=== PATIENT | male | born 1980 | race Caucasian/White ===

== ENCOUNTER 2021-08-04 13:36 | Inpatient (IN) | payer OTHER, SELFPAY ==
[~2021-08-04] VITALS: Ht 175.3 cm; Wt 98.4 kg
[2021-08-04] VITALS (7 sets, daily range): BP systolic 65–121; BP diastolic 13–59
--- NOTE | 2021-08-04 13:37 | NUR ---
YOEL ENCISO TAKEN TO ER BED 10
[2021-08-04] MEDS ORDERED: VANCOMYCIN 1,000 MG in DEXTROSE 5% 250 ML IV ONE (14:00)
[2021-08-04] MEDS ORDERED: CEFEPIME 2,000 MG in DEXTROSE 5% 100 ML IV ONE (14:00)
[2021-08-04] MEDS ORDERED: NACL 0.9% 1,000 ML IV ONE (14:00)
--- NOTE | 2021-08-04 14:00 | NUR ---
PATIENTS BLOOD PRESSURE 75/34, DR. DIXON MADE AWARE, GIVEN VERBAL ORDER TO BOLUS ONE BAG OF NS FLUIDS.
[2021-08-04] MEDS ORDERED: ACETAMINOPHEN 650 MG SUPP RC ONE ×2 (14:05→18:30)
--- NOTE | 2021-08-04 14:17 | NUR ---
FABIOLA SWAB COLLECTED AND HANDED TO MERVIN MCCORD
--- NOTE | 2021-08-04 14:17 | NUR ---
LAB BEDSIDE FOR BLOOD DRAW
[2021-08-04] MEDS ORDERED: CEFEPIME 2,000 MG VIAL IV ONE (14:29)
[2021-08-04 14:39] LABS: BASOPHILS # (AUTO) 0.1 K/uL (0.00-0.22); BASOPHILS % (AUTO) 0.5 % (0.0-2.0); EOSINOPHILS # (AUTO) 0.1 K/uL (0-0.4); EOSINOPHILS % (AUTO) 0.5 % (0.0-4.0); HEMOGLOBIN 7.3 g/dL (12.0-18.0); LYMPHOCYTES # (AUTO) 1.5 K/uL (2.0-11.5); LYMPHOCYTES % (AUTO) 9.3 % (20.5-51.1); MEAN CORPUSCULAR HEMOGLOBIN 29 pg (27-31); MEAN CORPUSCULAR HGB CONC 31 g/dL (33-37); MEAN CORPUSCULAR VOLUME 94.8 fL (80-94); MONOCYTES # (AUTO) 1.4 K/uL (0.8-1.0); MONOCYTES % (AUTO) 8.9 % (1.7-9.3); NEUTROPHILS # (AUTO) 12.6 K/uL (1.8-7.7); NEUTROPHILS % (AUTO) 80.8 % (42.2-75.2); PLATELET COUNT (AUTO) 389 K/uL (140-450); RED BLOOD CELL COUNT(AUTO) 2.53 MIL/uL (4.20-6.10); WHITE BLOOD COUNT (AUTO) 15.7 K/uL (4.8-10.8)
--- NOTE | 2021-08-04 14:40 | NUR ---
DR. DIXON BEDSIDE FOR ULTRASOUND GUIDED IV
--- NOTE | 2021-08-04 14:45 | NUR ---
EMT BEDSIDE FOR EKG
--- NOTE | 2021-08-04 14:48 | NUR ---
MANAGER LICENSING AT BEDSIDE
[2021-08-04] MEDS ORDERED: VANCOMYCIN 1,000 MG VIAL ONE (14:51)
--- NOTE | 2021-08-04 15:10 | NUR ---
PATIENT PRESENTS TO ED WITH C/O OF FEVER. PER EMS STAFF CALL 911 STATING PT HAD A TEMP OF 100.7. EMS STATES PT WAS TRANSFERED TO [facility] [place] YESTERDAY. PT TRACH TO VENT. UPON ARRIVAL RECTAL TEMP 101.9. GTUBE IN PLACE UPON ARRIVAL. UNSTAGEABLE ULCER AT THE SACERAL REGION. AAOX0, RT AT BEDSIDE UPON ADMISSION, PLACED PATENT ON VENT. PATIENT POSITIONED FOR COMFORT; HOB ELEVATED; BEDRAILS UP X2; BED DOWN. ER MD MADE AWARE OF PT STATUS. NKDA MED HX: CHRONIC ENCEPHALOPATHY, HTN, SEZ DISORDER, SI
[2021-08-04 15:14] LABS: ALBUMIN 1.9 g/dL (3.4-5.0); ANION GAP 13.8 (8-16); CARBON DIOXIDE 27.1 mmol/L (21-32); CREATININE 1.8 mg/dL (0.6-1.3); POTASSIUM 4.9 mmol/L (3.5-5.1); TOTAL BILIRUBIN 0.5 mg/dL (0.0-1.0)
[2021-08-04] MEDS ORDERED: NACL 0.9% 500 ML IV ONE ×2 (15:20→17:00)
--- NOTE | 2021-08-04 15:27 | NUR ---
URINE WALKED TO LAB
[2021-08-04 15:52] LABS: APPEARANCE,URINE CLEAR (CLEAR); BILIRUBIN,URINE NEGATIVE (NEGATIVE); BLOOD, URINE NEGATIVE (NEGATIVE); COLOR,URINE YELLOW (YELLOW); LEUKOCYTE ESTERASE ,URINE NEGATIVE (NEGATIVE); NITRITE, URINE NEGATIVE (NEGATIVE); UGLUCOSE NEGATIVE (NEGATIVE)
[2021-08-04 16:43] LABS: PROTHROMBIN TIME 10.8 secs (10.8-13.4)
--- NOTE | 2021-08-04 16:45 | NUR ---
BLOOD PRESSURE 90/47 MAP OF 58, DR. DIXON AWARE, VERBAL ORDER GIVEN TO START 500 FLUIDS
[2021-08-04] MEDS ORDERED: MAGNESIUM OXIDE 400 MG TAB PO PRN (17:05)
[2021-08-04] MEDS ORDERED: MORPHINE SULFATE 4 MG/ML SYR IVP PRN (17:05)
[2021-08-04] MEDS ORDERED: ONDANSETRON 4 MG/2 ML VIAL IVP PRN (17:05)
[2021-08-04] MEDS ORDERED: MAG SULF 2000 MG/WATER PREMIX 50 ML IV PRN (17:05)
[2021-08-04] MEDS ORDERED: POTASSIUM CHLORIDE 10 MEQ TABER PO PRN (17:05)
[2021-08-04] MEDS ORDERED: KCL 20 MEQ/WATER INJ PREMIX 200 ML IV PRN (17:05)
[2021-08-04] MEDS ORDERED: VANCOMYCIN PER PHARMACY MC PRN (17:05)
--- NOTE | 2021-08-04 17:45 | NUR ---
PATIENTS BLOOD PRESSURE 75/33, DR. DIXON AWARE.
--- NOTE | 2021-08-04 17:52 | NUR ---
SPOKE WITH PATIENTS MOTHER AND DECISION MAKER DRAKE, GIVEN VERBAL CONSENT TO ADMINISTER BLOOD TRANSFUSION.
--- NOTE | 2021-08-04 17:56 | NUR ---
Patient noted to have existing wounds upon arrival to ER. Photos taken of wound and placed in chart. Wound covered with dressing. Physician informed.
[2021-08-04] MEDS: PANTOPRAZOLE 80 MG in NACL 0.9% 100 ML IVP SCH (18:00)
[2021-08-04] MEDS: PIPERACILLIN/TAZOBACTAM 3.375 GM in DEXTROSE 5% 50 ML IV SCH (18:00)
[2021-08-04] MEDS ORDERED: VANCOMYCIN 500 MG in DEXTROSE 5% 100 ML IV SCH (18:00)
--- NOTE | 2021-08-04 18:00 | NUR ---
PATIENT REPOSITIONED IN BED, PROVIDED WITH EXTRA PILLOWS. PATIENT CLEANED AND PLACED IN A POSITION OF COMFORT. PATIENT ON BEDSIDE FIREWALL ENGINEER.
--- NOTE | 2021-08-04 18:20 | NUR ---
PATIENT RECTAL TEMP 100.9, GIVEN VERBAL ORDER FOR RC TYLENOL 650 MG
--- NOTE | 2021-08-04 18:25 | NUR ---
Consent signed per PATIENTS DECISION MAKER AND DR. DIXON agreeing to administration of blood. Blood has been type and crossmatched. Blood sent from blood bank. Information on unit of blood checked against patient wristband at bedside by two nurses. All information matches. Patient or responsible green party informed of potential complications associated with blood transfusion. Informed of possible transfusion reaction symptoms. Aware of need to notify nurse at once of itching, shortness of breath, flushing, feeling of impending doom, or other symptoms not previously present. Vital signs taken within 5 minutes prior to initiation of transfusion. RN will remain with patient for first 15 minutes of transfusion at which time vital signs will be re-assessed.
[2021-08-04] MEDS ORDERED: VANCOMYCIN 500 MG VIAL ONE (18:37)
[2021-08-04] MEDS: NACL 0.9% 1,000 ML IV SCH (19:02)
--- NOTE | 2021-08-04 19:06 | NUR ---
RECEIVED PT TRACH TO VENT WITH A PORTEX 8 ON A Digital LuxurySCAPE R860 VENTILATOR SETTINGS AC VT500, RR14, PEEP+5, FIO2 30%. NO SIGNS OF RESPIRATORY DISTRESS NOTED AT THIS TIME, PT'S CURRENT SATURATION IS 100%. ANTERIOR AUSCULTATION REVEALED BS CLEAR THROUGHOUT, SX SCANT PALE/YELLOW THICK SECRETIONS. ORAL CARE DONE, TRACH CARE DONE, SUCTION KAUR AND HME REPLACED, HOB ELEVATED, BAG VALVE MASK AT BEDSIDE, VENT PLUGGED INTO RED OUTLET. WILL CONTINUE TO MONITOR.
--- NOTE | 2021-08-04 19:31 | NUR ---
Pt report given to JACINDA THURSTON. Transfer of care at this time.
[2021-08-04] MEDS ORDERED: PIPERACILLIN/TAZOBACTAM 3.375 GM VIAL IV ONE (19:45)
--- NOTE | 2021-08-04 19:57 | NUR ---
REPORT GIVEN TO MARYAM MONACO AT THIS TIME FOR TRANSFER TO ICU1 AT THIS TIME. PENDING RT ESCORT
--- NOTE | 2021-08-04 20:00 | NUR ---
NOTE ABOVE CHARTED BY KARENA MONACO, NOT SATHISH
--- NOTE | 2021-08-04 20:19 | NUR ---
RT AT BEDSIDE FOR TRANSFER
--- NOTE | 2021-08-04 20:20 | NUR ---
RECEIVED REPORT FROM DELIMER RN BOB FOR TRANSFER OF CARE.
--- NOTE | 2021-08-04 20:36 | NUR ---
TRANSFERRED PT TO ICU BED 1 FROM ER BED 10 WITH NO COMPLICATIONS. VENT ON, ALARMS ARE ON AND AUDIBLE, VENT PLUGGED INTO RED OUTLET, BAG VALVE MASK AT BED SIDE, HOB ELEVATED, NO SIGNS OF RESPIRATORY DISTRESS AT THIS TIME. WILL CONTINUE TO MONITOR.
--- NOTE | 2021-08-04 21:55 | NUR ---
INFUSION OF 1 UNIT PRBC COMPLETED. PT TOLERATED WELL. VSS. WILL CONTINUE TO MONITOR.
[2021-08-05] VITALS (20 sets, daily range): BP systolic 94–141; BP diastolic 48–79
[2021-08-05] MEDS ORDERED: PIPERACILLIN/TAZOBACTAM 3.375 GM VIAL IV ONE ×2 (00:07→06:15)
--- NOTE | 2021-08-05 00:24 | NUR ---
PT OBSERVED. VSS. LAYING IN BED WITH EYES CLOSED. CHEST RISE AND FALL PRESENT. RT AT BEDSIDE. PT TURNED AND REPOSITIONED. WILL CONTINUE TO MONITOR.
--- NOTE | 2021-08-05 02:07 | NUR ---
PT OBSERVED. ORAL SECRETIONS PRESENT. ORAL SUCTIONING AND ORAL CARE PROVIDED. TOLERATED WELL. VSS. PT TURNED AND REPOSITIONED. WILL CONTINUE TO MONITOR.
[2021-08-05] MEDS ORDERED: PANTOPRAZOLE 40 MG INJ VIAL ONE (03:33)
[2021-08-05] MEDS: PANTOPRAZOLE 80 MG in NACL 0.9% 100 ML IVP SCH (04:00)
--- NOTE | 2021-08-05 04:10 | NUR ---
PT WITH COPIOUS AMOUNT OF LIGHT BROWN LIQUID STOOL. PT CLEANED AND REPOSITIONED. VREA CARE AND CATHETER CARE DONE. TOLERATED WELL. WILL CONTINUE TO MONITOR.
[2021-08-05] MEDS: NACL 0.9% 1,000 ML IV SCH ×2 (05:35→18:54)
[2021-08-05 05:54] LABS: ANION GAP 13.1 (8-16); CREATININE 1.4 mg/dL (0.6-1.3); MAGNESIUM 2.6 mg/dL (1.8-2.4); POTASSIUM 4.1 mmol/L (3.5-5.1); TOTAL BILIRUBIN 0.7 mg/dL (0.0-1.0)
[2021-08-05 06:06] LABS: BASOPHILS % (AUTO) 0.2 % (0.0-2.0); EOSINOPHILS # (AUTO) 0.1 K/uL (0-0.4); EOSINOPHILS % (AUTO) 1.1 % (0.0-4.0); HEMATOCRIT 25.8 % (36-52); HEMOGLOBIN 8.2 g/dL (12.0-18.0); LYMPHOCYTES # (AUTO) 0.6 K/uL (2.0-11.5); LYMPHOCYTES % (AUTO) 4.7 % (20.5-51.1); MEAN CORPUSCULAR HEMOGLOBIN 30 pg (27-31); MEAN CORPUSCULAR HGB CONC 32 g/dL (33-37); MEAN CORPUSCULAR VOLUME 92.8 fL (80-94); MONOCYTES # (AUTO) 0.5 K/uL (0.8-1.0); MONOCYTES % (AUTO) 3.9 % (1.7-9.3); NEUTROPHILS # (AUTO) 11.2 K/uL (1.8-7.7); NEUTROPHILS % (AUTO) 90.1 % (42.2-75.2); PLATELET COUNT (AUTO) 366 K/uL (140-450); RED BLOOD CELL COUNT(AUTO) 2.78 MIL/uL (4.20-6.10); RED CELL DISTRIBUTION WIDTH 18.4 % (11.6-13.7); WHITE BLOOD COUNT (AUTO) 12.4 K/uL (4.8-10.8)
[2021-08-05] MEDS: PIPERACILLIN/TAZOBACTAM 3.375 GM in DEXTROSE 5% 50 ML IV SCH ×3 (06:28)
--- NOTE | 2021-08-05 06:56 | NUR ---
PT OBSERVED LAYING IN BED WITH EYES CLOSED. CHEST RISE AND FALL PRESENT. NO S/S OF DISTRESS NOTED AT THIS TIME. ORAL CARE AND SUCTIONING PROVIDED. PT TURNED AND REPOSITIONED. WILL CONTINUE TO MONITOR.
--- NOTE | 2021-08-05 07:35 | NUR ---
REPORT GIVEN AT BEDSIDE TO DAYSHIFT RN FOR CONTINUITY OF CARE
--- NOTE | 2021-08-05 08:00 | NUR ---
Assumed care of Pt at this time. Pt is awake, non-verbal responsive to painful stimuli. Resp even and unlabored, trach to Vent patent and intact. Suctioned with thin clear white secretions obtained. Rhonchi heard upon auscultation. Abd soft and non-tender. + BS heard x 4. GT patent and intact. Skin dry and intact. Mult wounds noted and pictures in chart. Repositioned q2hr/PRN. Heels off loaded with protection in place. SR up x2 for safety, call light in reach.
--- NOTE | 2021-08-05 10:00 | NUR ---
PATIENT HAS BEEN SCREENED AND CATEGORIZED HIGH NUTRITION RISK. PATIENT WILL BE SEEN WITHIN 1-2 DAYS OF ADMISSION. / BASIL NASH RD
--- NOTE | 2021-08-05 10:08 | NUR ---
Dr Cobb present to round with RN. Request to consult Dr Saul with ID d/t PmHx of MDRO.
--- NOTE | 2021-08-05 11:34 | NUR ---
DC [age]ANN[age] YRS OLD MALE PATIENT WAS ADMITTED FROM [facility] WITH A DX OF SEPTIC SHOCK. 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 CXR SHOWED PNEUMONIA RAPID COVID TEST NEGATIVE. ON TRACH TO VENT FIO2 24%. ADMINISTERED IVF, IV ABX MEROPENEM AND PROTONIX DRIP. CONSULTED WITH GI AND PULMO. DC PLAN TO RETURN TO [facility] WHEN STABLE. CM TO FOLLOW.
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
--- NOTE | 2021-08-05 12:42 | NUR ---
08/05/21 RD INITIAL ASSESSMENT COMPLETED PLEASE REFER TO NUTRITION ASSESSMENT UNDER CARE ACTIVITY FOR ESTIMATED NUTRITIONAL NEEDS. 1. RECOMMEND NEPRO WITH A GOAL RATE OF 45 ML/HR -FWF: 150 ML Q6H OR PER MD -START AT 20 ML/HR AND INCREASE BY 20 ML Q6H TOLERATED -WILL PROVIDE 1944 KCAL AND 87 GM PROTEIN, MEETING 89% ESTIMATED KCAL AND 100% ESTIMATED PROTEIN NEEDS 2. MONITOR NUTRITION-RELATED LAB VALUES 3. RD TO FOLLOW-UP 2-3 DAYS, HIGH RISK BASIL NASH RD
[2021-08-05] MEDS: ALBUMIN HUMAN 25% 50 ML IV SCH ×2 (12:51→18:55)
[2021-08-05] MEDS: MEROPENEM 1,000 MG in NACL 0.9% 50 ML IV SCH ×2 (12:52→20:40)
--- NOTE | 2021-08-05 14:00 | NUR ---
Pt given complete pericare and repositioned q2hr during shift, remains VSS and afebrile. 1x episode of mod soft stool noted.
[2021-08-05] MEDS: VANCOMYCIN 1,000 MG in DEXTROSE 5% 250 ML IV SCH (16:52)
--- NOTE | 2021-08-05 17:00 | NUR ---
Pt transported x 2 RNS and 2 RTs. Pt on cont monitoring with 2x IVS patent. Report given to Debi MONACO. UMANG mattress pump transported with Pt to Room 108B(Tele). Pt condition remains stable and unchanged, VSS. Trach patent to vent and GT/F/C remains in place.
--- NOTE | 2021-08-05 17:15 | NUR ---
RECEIVED REPORT FROM ICU NURSE FOR CONTINUITY OF CARE. PT WAS TRANSFERRED VIA WOUND CARE BED. ON TRACH TO VENT WITH O2 SAT 100%. PT IS APHASIC. DOES NOT TRACK WITH EYES. G TUBE IS IN PLACE WITH FEEDING INFUSING. HAWTHORNE CATH IN PLACE DRAINING STRAW COLORED URINE. IV IS INTACT IN THE RIGHT HAND INFUSING FLUID AND LEFT AC IV ALSO INTACT. MULTIPLE WOUNDS ALL OVER BODY. PT IS BEDBOUND. WILL CONTINUE TO MONITOR.
--- NOTE | 2021-08-05 19:30 | NUR ---
ENDORSED PT TO APPLICATION INTEGRATION SPECIALIST NURSE FOR CONTINUITY OF CARE. PT IS STABLE. O2 SAT IS 100% ON TRACH TO VENT. PLAN OF CARE DISCUSSED.
--- NOTE | 2021-08-05 19:35 | NUR ---
RECEIVED REPORT FROM DAY NURSE FOR CONTINUITY OF CARE. PT IS APHASIC. DOES NOT TRACK WITH EYES, AROUSABLE TO LIGHT PAIN. ON TRACH TO VENT WITH O2 SAT 100%. G TUBE IS IN PLACE WITH FEEDING INFUSING. HAWTHORNE CATH IN PLACE DRAINING STRAW COLORED URINE. IV IS INTACT IN THE RIGHT HAND INFUSING FLUID AND LEFT AC IV ALSO INTACT. MULTIPLE WOUNDS ALL OVER BODY. PT IS BEDBOUND. WILL CONTINUE TO MONITOR
--- NOTE | 2021-08-05 20:00 | NUR ---
MESSAGED DR. BOSTON IF HE WANTS TO CONTINUE BLOOD TRANSFUSION, HGB 8.2, HCT 25.8. HE SAID TO HOLD FOR NOW.
--- NOTE | 2021-08-05 21:00 | NUR ---
SCHEDULED MEDICATION GIVEN. PT TOLERATED WELL. WILL CONTINUE TO MONITOR.
--- NOTE | 2021-08-05 22:28 | NUR ---
PT ASLEEP. BREATHING EQUAL AND UNLABORED.NO SIGNS AND SYMPTOMS OF DISTRESS NOTED. ALL PRECAUTIONS IN PLACE. WILL CONTINUE TO MONITOR.
[2021-08-06] VITALS: BP 122/55
--- NOTE | 2021-08-06 | NUR ---
VS STABLE.O2 SAT AT 100%.BREATHING EQUAL AND UNLABORED. NO S/SX OF DISTRESS NOTED. ALL PRECAUTIONS IN PLACE. CALL LIGHT WITHIN REACH.WILL CONTINUE TO MONITOR.
[2021-08-06] MEDS: HYDRAGUARD CREAM TP SCH ×2 (01:36→13:00)
--- NOTE | 2021-08-06 02:30 | NUR ---
PT ASLEEP.BREATHING EQUAL AND UNLABORED. NO S/SX OF DISTRESS NOTED. ALL PRECAUTIONS IN PLACE. CALL LIGHT WITHIN REACH.WILL CONTINUE TO MONITOR.
[2021-08-06 04:00] VITALS: BP 137/61
--- NOTE | 2021-08-06 04:20 | NUR ---
SCHEDULED MEDICATION GIVEN. PT TOLERATED WELL. WILL CONTINUE TO MONITOR.
[2021-08-06] MEDS: VANCOMYCIN 1,000 MG in DEXTROSE 5% 250 ML IV SCH ×2 (04:40→16:24)
--- NOTE | 2021-08-06 04:41 | NUR ---
PT WAS CLEANED AND REPOSITIONED FOR COMFORT. PT TOLERATED WELL. NO DISTRESS NOTED.
[2021-08-06] MEDS: MEROPENEM 1,000 MG in NACL 0.9% 50 ML IV SCH ×3 (05:00→20:12)
[2021-08-06] MEDS: NACL 0.9% 1,000 ML IV SCH (06:35)
[2021-08-06 06:39] LABS: BASOPHILS % (AUTO) 0.1 % (0.0-2.0); EOSINOPHILS # (AUTO) 0.4 K/uL (0-0.4); EOSINOPHILS % (AUTO) 3.7 % (0.0-4.0); HEMATOCRIT 22.6 % (36-52); HEMOGLOBIN 7.4 g/dL (12.0-18.0); LYMPHOCYTES # (AUTO) 0.8 K/uL (2.0-11.5); LYMPHOCYTES % (AUTO) 7.8 % (20.5-51.1); MEAN CORPUSCULAR HEMOGLOBIN 30 pg (27-31); MEAN CORPUSCULAR HGB CONC 33 g/dL (33-37); MEAN CORPUSCULAR VOLUME 92.2 fL (80-94); MONOCYTES # (AUTO) 0.6 K/uL (0.8-1.0); MONOCYTES % (AUTO) 6.5 % (1.7-9.3); NEUTROPHILS # (AUTO) 8.1 K/uL (1.8-7.7); NEUTROPHILS % (AUTO) 81.9 % (42.2-75.2); PLATELET COUNT (AUTO) 317 K/uL (140-450); RED BLOOD CELL COUNT(AUTO) 2.45 MIL/uL (4.20-6.10); RED CELL DISTRIBUTION WIDTH 18.5 % (11.6-13.7); WHITE BLOOD COUNT (AUTO) 9.9 K/uL (4.8-10.8)
--- NOTE | 2021-08-06 07:02 | NUR ---
PT IS STABLE. NO ACUTE EVENTS THROUGHOUT THE NIGHT. NO S/SX OF DISTRESS OF THE MOMENT.ALL NEEDS ATTENDED. ALL PRECAUTIONS IN PLACE. WILL ENDORSE TO AM SHIFT NURSE.
--- NOTE | 2021-08-06 07:10 | NUR ---
RECEIVED REPORT FROM SEMICONDUCTOR WAFERS MARKER NURSE FOR CONTINUITY OF CARE. PT ASLEEP IN BED. ON TRACH TO VENT WITH SETTINGS FIO2 24, PEEP 5, VT 475 RATE 14, BREATHING SYMMETRICAL. GT INTACT AND PATENT. HOB KEPT ELEVATED. WITH LAC 18G ON SALINE LOCK AND RIGHT WRIST 20G RUNNING NS AT 80CC/HR. ALL SAFETY MEASURES IN PLACE.
[2021-08-06 08:00] VITALS: BP 133/66
[2021-08-06] MEDS: PANTOPRAZOLE 40 MG INJ VIAL IVP SCH (08:17)
--- NOTE | 2021-08-06 10:09 | NUR ---
PT'S LATEST HEMOGLOBIN IS 7.4 WITH BLOOD READY, NO OBVIOUS SIGN OF ACTIVE BLEEDING NOTED AT THIS TIME. ALSO PT HAS HAWTHORNE CATHETER WITH NO INDICATION FOR IT, LEFT MESSAGE TO DR GONZALES IS WANTS TO PROCEED WITH BLOOD TRANSFUSION AND IF OKAY TO CHANGE TO HAWTHORNE CATHETER, AWAITING RESPONSE.
--- NOTE | 2021-08-06 10:16 | NUR ---
DR GONZALES STATED TO HOLD BLOOD TRANSFUSION AT THIS TIME AND DC HAWTHORNE CATHETER.
--- NOTE | 2021-08-06 10:29 | NUR ---
F/C DISCONTINUED ORDERED. FLACC O DURING REMOVAL.
[2021-08-06 11:03] LABS: ALBUMIN 2.1 g/dL (3.4-5.0); ANION GAP 17.2 (8-16); MAGNESIUM 2.3 mg/dL (1.8-2.4); POTASSIUM 3.2 mmol/L (3.5-5.1); TOTAL BILIRUBIN 0.4 mg/dL (0.0-1.0)
[2021-08-06] MEDS ORDERED: POTASSIUM CHLORIDE 20% 40 MEQ/15 ML UDC GT PRN (11:20)
[2021-08-06 12:00] VITALS: BP 134/67
[2021-08-06] MEDS: SKINTEGRITY HYDROGEL TP SCH (13:00)
--- NOTE | 2021-08-06 14:10 | NUR ---
PT IN BED, APHASIC, NON VERBAL. ON TRACH TO VENT, BREATHING SYMMETRICAL. FLACC O. WILL CONTINUE TO MONITOR
[2021-08-06 16:00] VITALS: BP 149/62
--- NOTE | 2021-08-06 17:42 | NUR ---
PT ASLEEP IN BED. BREATHING SYMMETRICAL ON TRACH TO VENT. FLACC O. FREQUENT ROUNDS DONE. GT INTACT AND PATENT, TOLERATING GTF WELL. ALL SAFETY MEASURES IN PLACE.
--- NOTE | 2021-08-06 19:15 | NUR ---
ENDORSED PT TO FRUIT HARVESTER MACHINE OPERATOR NURSE. PT IN STABLE CONDITION
--- NOTE | 2021-08-06 19:20 | NUR ---
RECEIVED REPORT FROM DAY NURSE FOR CONTINUITY OF CARE. PT IS APHASIC. DOES NOT TRACK WITH EYES, AROUSABLE TO LIGHT PAIN. ON TRACH TO VENT WITH O2 SAT 100%. G TUBE IS IN PLACE WITH FEEDING INFUSING. . IV IS INTACT IN THE RIGHT HAND INFUSING FLUID AND LEFT AC IV ALSO INTACT. MULTIPLE WOUNDS ALL OVER BODY. PT IS BEDBOUND. WILL CONTINUE TO MONITOR
[2021-08-06 20:00] VITALS: BP 142/66
--- NOTE | 2021-08-06 21:00 | NUR ---
SCHEDULED MEDICATION GIVEN. PT TOLERATED WELL. WILL CONTINUE TO MONITOR.
[2021-08-07] VITALS (7 sets, daily range): BP systolic 118–134; BP diastolic 50–64
--- NOTE | 2021-08-07 | NUR ---
PT ASLEEP.BREATHING EQUAL AND UNLABORED. NO S/SX OF DISTRESS NOTED. ALL PRECAUTIONS IN PLACE. CALL LIGHT WITHIN REACH.WILL CONTINUE TO MONITOR.
[2021-08-07] MEDS: HYDRAGUARD CREAM TP SCH ×2 (01:01→13:09)
--- NOTE | 2021-08-07 02:57 | NUR ---
TUBE FEEDING CHANGED. PT TOLERATED WELL. ALL PRECAUTIONS IN PLACE. WILL CONTINUE TO MONITOR.
[2021-08-07 03:05] LABS: BASOPHILS % (AUTO) 0.2 % (0.0-2.0); EOSINOPHILS # (AUTO) 0.3 K/uL (0-0.4); EOSINOPHILS % (AUTO) 2.6 % (0.0-4.0); LYMPHOCYTES # (AUTO) 1.5 K/uL (2.0-11.5); LYMPHOCYTES % (AUTO) 14.7 % (20.5-51.1); MEAN CORPUSCULAR HEMOGLOBIN 30 pg (27-31); MEAN CORPUSCULAR HGB CONC 32 g/dL (33-37); MEAN CORPUSCULAR VOLUME 92.7 fL (80-94); MONOCYTES # (AUTO) 0.6 K/uL (0.8-1.0); NEUTROPHILS % (AUTO) 76.5 % (42.2-75.2); PLATELET COUNT (AUTO) 325 K/uL (140-450); RED BLOOD CELL COUNT(AUTO) 2.37 MIL/uL (4.20-6.10); WHITE BLOOD COUNT (AUTO) 10.5 K/uL (4.8-10.8)
[2021-08-07 03:27] LABS: ANION GAP 13.4 (8-16); CARBON DIOXIDE 22.2 mmol/L (21-32); CREATININE 0.8 mg/dL (0.6-1.3); MAGNESIUM 1.9 mg/dL (1.8-2.4); POTASSIUM 3.6 mmol/L (3.5-5.1); TOTAL BILIRUBIN 0.2 mg/dL (0.0-1.0)
--- NOTE | 2021-08-07 03:33 | NUR ---
CRITICAL LAB VALUE. VANCO TROUGH 23.7. WILL HOLD 0400 SCHEDULED VANCO.
[2021-08-07] MEDS: VANCOMYCIN 1,000 MG in DEXTROSE 5% 250 ML IV SCH (04:00)
--- NOTE | 2021-08-07 04:01 | NUR ---
CALLED PHARMACY, SPOKE TO KRISTOFER AND REPORTED VANCO TROUGH 23.7. RELAYED NEW FREQUENCY WILL BE ORDERED.
[2021-08-07] MEDS: MEROPENEM 1,000 MG in NACL 0.9% 50 ML IV SCH ×3 (05:10→20:21)
--- NOTE | 2021-08-07 07:30 | NUR ---
RECEIVED REPORT FORM DISTANCE LEARNING PROGRAM COORDINATOR NURSE. PT STABLE. NO S/S OF DISTRESS. CALL LIGHT IN REACH ALL SAFETY MEASURES IN PLACE
--- NOTE | 2021-08-07 07:37 | NUR ---
PT ENDORSED TO AM SHIFT NURSE FOR CONTINUITY OF CARE. PT IS STABLE.
--- NOTE | 2021-08-07 08:02 | NUR ---
RECEIVED ON A BangoAPE R860 VENTILATOR PLUGGED INTO RED OUTLET TOLERATING WELL WITHOUT ADVERSE REACTIONS NOTED TO A PORTEX DCT #8 AIRWAY SECURED WITH A ZOEY TRACH TIE CUFF PRESSURE CHECKED NOTED AMBU BAG AT BEDSIDE RESTING WELL GOOD CHEST RISE AND AERATION THROUGHOUT BILATERAL LUNG HICKEY AIRWAY PATENT Addendum: 08/07/21 at 1432 by Marcell Hamilton RT DCT = SOCORRO
[2021-08-07] MEDS: PANTOPRAZOLE 40 MG INJ VIAL IVP SCH (08:47)
--- NOTE | 2021-08-07 11:30 | NUR ---
PT CLEANED AND CHANGED. WOUND CARE GIVEN. NO S/S OF DISTRESS. ALL SAFETY MEASURES IN PLACE
[2021-08-07] MEDS: SKINTEGRITY HYDROGEL TP SCH (13:09)
--- NOTE | 2021-08-07 14:00 | NUR ---
NO APPARENT DISTRESS NOTED EQUAL CHEST RISE DEEP TRACHEAL SUCTION FOR LARGE SEMI THICK PALE YELLOW SECRETIONS AIRWAY PATENT
--- NOTE | 2021-08-07 15:01 | NUR ---
08/07/21 RD FOLLOW UP COMPLETED PLEASE REFER TO NUTRITION ASSESSMENT UNDER CARE ACTIVITY FOR ESTIMATED NUTRITIONAL NEEDS. 1. CONTINUE NEPRO WITH A GOAL RATE OF 45 ML/HR -FWF: 150 ML Q6H OR PER MD -WILL PROVIDE 1944 KCAL AND 87 GM PROTEIN, MEETING 89% ESTIMATED KCAL AND 100% ESTIMATED PROTEIN NEEDS 2. MONITOR NUTRITION-RELATED LAB VALUES 3. RD TO FOLLOW-UP 3-5 DAYS, MODERATE RISK BASIL NASH RD
--- NOTE | 2021-08-07 16:00 | NUR ---
PT STABLE. BREATHING SYMMETRICAL. NO S/S OF DISTRESS. CALL LIGHT IN REACH. ALL SAFETY MEASURES IN PLACE.
--- NOTE | 2021-08-07 19:30 | NUR ---
RECEIVED REPORT FROM MORNING SHIFT NURSE. PATIENT RESTING ON BED, TRACHE TO VENT SETTING OF RR14 FI02 24% TV 445 PEEP 5. NO S/SX OF CARDIAC OR RESPIRATORY DISTRESS. PATIENT AWAKE WITH SPONTANEOUS EYE OPENING. IV SITES INTACT AND SALINE LOCKED. TUBE FEEDING ONGOING AT 45 ML/HR, WITH FWF OF 250 Q6H. WILL CONTINUE TO MONITOR PATIENT.
--- NOTE | 2021-08-07 19:43 | NUR ---
ENDORSED PT TO ENVIRONMENTAL HEALTH SAFETY MANAGER NURSE.
[2021-08-08] VITALS (7 sets, daily range): BP systolic 136–142; BP diastolic 50–70
[2021-08-08] MEDS: HYDRAGUARD CREAM TP SCH ×2 (01:11→13:28)
[2021-08-08] MEDS: MEROPENEM 1,000 MG in NACL 0.9% 50 ML IV SCH ×3 (04:58→22:27)
--- NOTE | 2021-08-08 05:00 | NUR ---
MORNING CARE RENDERED, COMPLETE BED CHANGE DONE.VERA CARE AND ORAL CARE DONE.
--- NOTE | 2021-08-08 07:17 | NUR ---
REPORT GIVEN TO MORNING SHIFT RN. PATIENT STABLE WITH SAME VENT SETTING.
--- NOTE | 2021-08-08 07:30 | NUR ---
RECEIVED REPORT FROM CURTAIN CLEANER NURSE. SPOKE TO RT, RT WILL COLLECT SPUTUM SAMPLE.
--- NOTE | 2021-08-08 07:40 | NUR ---
RECEIVED ON A MedHOKSCAPE R860 VENTILATOR PLUGGED INTO RED OUTLET TOLERATING WELL WITHOUT ADVERSE REACTIONS NOTED TO A PORTEX DFEN #8 AIRWAY SECURED WITH A ZOEY TRACH TIE AMBU BAG AT BEDSIDE RESTING COMFORTABLY NO APPARENT DISTRESS NOTED EQUAL CHEST RISE DEEP TRACHEAL SUCTION FOR SMALL THIN PALE YELLOW SECRETIONS AIRWAY PATENT
[2021-08-08 08:16] LABS: BASOPHILS % (AUTO) 0.3 % (0.0-2.0); EOSINOPHILS # (AUTO) 0.2 K/uL (0-0.4); EOSINOPHILS % (AUTO) 1.5 % (0.0-4.0); HEMATOCRIT 21.1 % (36-52); LYMPHOCYTES # (AUTO) 1.9 K/uL (2.0-11.5); LYMPHOCYTES % (AUTO) 15.4 % (20.5-51.1); MEAN CORPUSCULAR HEMOGLOBIN 30 pg (27-31); MEAN CORPUSCULAR HGB CONC 32 g/dL (33-37); MEAN CORPUSCULAR VOLUME 91.9 fL (80-94); MONOCYTES # (AUTO) 0.5 K/uL (0.8-1.0); MONOCYTES % (AUTO) 4.2 % (1.7-9.3); NEUTROPHILS # (AUTO) 9.6 K/uL (1.8-7.7); NEUTROPHILS % (AUTO) 78.6 % (42.2-75.2); PLATELET COUNT (AUTO) 351 K/uL (140-450); RED BLOOD CELL COUNT(AUTO) 2.29 MIL/uL (4.20-6.10); WHITE BLOOD COUNT (AUTO) 12.2 K/uL (4.8-10.8)
[2021-08-08 08:28] LABS: HEMOGLOBIN 6.8 g/dL (12.0-18.0)
--- NOTE | 2021-08-08 09:17 | NUR ---
NO SOB NOTED AT THIS TIME EQUAL CHEST RISE GOOD AERATION THROUGHOUT BILATERAL LUNG HICKEY AIRWAY PATENT
[2021-08-08] MEDS: PANTOPRAZOLE 40 MG INJ VIAL IVP SCH (09:26)
--- NOTE | 2021-08-08 11:30 | NUR ---
PT RESTING IN BED. NO S/S OF DISTRESS. BREATHING SYMMETRICAL, CALL LIGHT IN REACH. ALL SAFETY MEASURES IN PLACE. REMOVED LAC IV FOR INFECTION PREVENTION, CANULA INTACT. PT TOLERATED WELL.
--- NOTE | 2021-08-08 12:23 | NUR ---
NO EVIDENCE OF PULMONARY DISTRESS NOTED GOOD CHEST RISE DEEP TRACHEAL SUCTION FOR MODERATE THIN PALE WHITE SECRETIONS AIRWAY PATENT OBTAINED SPUTUM CULTURE SPECIMEN FORWARDED TO LAB
[2021-08-08 12:40] LABS: ANION GAP 17.1 (8-16); CARBON DIOXIDE 19.5 mmol/L (21-32); CREATININE 0.8 mg/dL (0.6-1.3); MAGNESIUM 1.8 mg/dL (1.8-2.4); POTASSIUM 3.6 mmol/L (3.5-5.1); TOTAL BILIRUBIN 0.2 mg/dL (0.0-1.0)
[2021-08-08] MEDS: SKINTEGRITY HYDROGEL TP SCH (13:28)
--- NOTE | 2021-08-08 15:30 | NUR ---
CLEANED AND CHANGED PT. WOUND CARE PROVIDED, ALL DRESSING CHANGED. PT TOLERATED WELL. NO S/S OF DISTRESS. Rt COLLECTED SPUTUM SPECIMEN TODAY AND SENT TO LAB. CALL LIGHT IN REACH. ALL SAFETY MEASURES IN PLACE
--- NOTE | 2021-08-08 15:38 | NUR ---
NO APPARENT SOB NOTED EQUAL CHEST RISE DEEP TRAHEAL SUCTION FOR MODERATE THIN PALE WHITE SECRETIONS AIRWAY PATENT
--- NOTE | 2021-08-08 19:30 | NUR ---
RECEIVED REPORT FROM RN DAYSHIFT NURSE AT BEDSIDE FOR CONTINUITY OF CARE, PT IS AOX1 HOB UP 35% EYES OPEN SPONTANEOUSLY, BUT DOESN'T TRACK. PT IS APHASIAC AND A TRACH TO VENT. VENT SETTINGS FOLLOWS: FI02 IS 24% RR 14 PEEP 5 VT 475. PT ALSO HAS A G TUBE IN PLACE RUNNING NEPHRO AT 45MLS/HR WITH H20 FLUSH OF 250Q 4HRS. PT IS INCONTINENT WITH NO HAWTHORNE CATHETER AND IS DRY AT THIS TIME. DRESSING TO ABDOMEN AND LOWER LEG IS INTACT WELL VERSATILE FOR TOES. PT HAS HEEL PROTECTORS ON. PT IV SITE IS A RIGHT WRIST 20G RUNNING N/S AT 5MLS/HR TO KVO. ALL ASPIRATION AND FALLS PRECAUTIONS IN PLACE.
--- NOTE | 2021-08-08 21:45 | NUR ---
PT 1999 V/S FOLLOWS: T 99.4 P 70 R 18 B/P 142/70 02 98% WITH ALL CURRENT TRACH TO VENT SETTINGS. PT GIVEN ICE PACKS COOLING MEASURES. ORDERED MERREM HUNG FOR EMPIRIC THERAPY. ALL ORDERED PRECAUTIONS IN PLACE.
--- NOTE | 2021-08-08 22:00 | NUR ---
PT REPOSITIONED IN BED AND SUCTIONED.
[2021-08-09] VITALS: BP 132/59
--- NOTE | 2021-08-09 00:30 | NUR ---
BLOOD TRANSFUSION STARTED. SD TRANSFUSION V/S FOLLOWS; T 99.4 P 71 R 16 B/P134/61 02 98% WITH ALL CURRENT TRACH TO VENT SETTINGS. ALL ORDERED PRECAUTIONS IN PLACE.
[2021-08-09] MEDS: HYDRAGUARD CREAM TP SCH ×2 (01:00→13:00)
--- NOTE | 2021-08-09 01:30 | NUR ---
BLOOD TRANSFUSION IN PROGRESS, NO ADVERSE EFFECTS NOTED. V/S HAVE BEEN STABLE, WILL CONTINUE TO MONITOR PT FOR TOLERANCE OF BLOOD TRANSFUSION. ALL ORDERED PRECAUTIONS IN PLACE.
--- NOTE | 2021-08-09 03:30 | NUR ---
BLOOD TRANSFUSION COMPLETED POST TRANSFUSION V/S FOLLOWS; T 98.8 P 65 R 18 B/P 134/56. NO ADVERSE REACTIONS NOTED. ALL ORDERED PRECAUTIONS IN PLACE.
[2021-08-09 04:00] VITALS: BP 144/63
--- NOTE | 2021-08-09 06:00 | NUR ---
PT WAS GIVEN ORDERED MERREM IV ABT . HE WAS TURNED, CLEANED AND REPOSITIONED IN BED. ORAL CARE PROVIDED. SACRAL DRESSING CHANGED AND BARRIER CREAM PROVIDED. ALL ORDERED PRECAUTIONS IN PLACE.
[2021-08-09] MEDS: MEROPENEM 1,000 MG in NACL 0.9% 50 ML IV SCH ×2 (06:42→12:28)
--- NOTE | 2021-08-09 07:30 | NUR ---
RECEIVED REPORT FROM ENVELOPE STAMPING MACHINE OPERATOR NURSE. NO S/S OF DISTRESS. CALL LIGHT IN REACH. ALL SAFETY MEASURES IN PLACE
[2021-08-09 07:41] LABS: ANION GAP 13.9 (8-16); CARBON DIOXIDE 23.9 mmol/L (21-32); CREATININE 0.7 mg/dL (0.6-1.3); POTASSIUM 3.8 mmol/L (3.5-5.1); TOTAL BILIRUBIN 0.4 mg/dL (0.0-1.0)
[2021-08-09 07:52] LABS: BASOPHILS # (AUTO) 0.1 K/uL (0.00-0.22); BASOPHILS % (AUTO) 0.4 % (0.0-2.0); EOSINOPHILS # (AUTO) 0.3 K/uL (0-0.4); HEMATOCRIT 24.9 % (36-52); LYMPHOCYTES # (AUTO) 2.3 K/uL (2.0-11.5); LYMPHOCYTES % (AUTO) 17.9 % (20.5-51.1); MEAN CORPUSCULAR HEMOGLOBIN 29 pg (27-31); MEAN CORPUSCULAR HGB CONC 32 g/dL (33-37); MEAN CORPUSCULAR VOLUME 90.1 fL (80-94); MONOCYTES # (AUTO) 0.7 K/uL (0.8-1.0); MONOCYTES % (AUTO) 5.7 % (1.7-9.3); NEUTROPHILS # (AUTO) 9.3 K/uL (1.8-7.7); PLATELET COUNT (AUTO) 398 K/uL (140-450); RED BLOOD CELL COUNT(AUTO) 2.77 MIL/uL (4.20-6.10); RED CELL DISTRIBUTION WIDTH 18.9 % (11.6-13.7); WHITE BLOOD COUNT (AUTO) 12.6 K/uL (4.8-10.8)
[2021-08-09 08:00] VITALS: BP 145/69
[2021-08-09] MEDS: PANTOPRAZOLE 40 MG INJ VIAL IVP SCH (08:49)
--- NOTE | 2021-08-09 11:47 | NUR ---
PT RESTING IN BED, NO S/S OF DISTRESS. CALL LIGHT IN REACH. ALL SAFETY MEASURES IN PLACE. IV PULLED OUT, CANULA INTACT. NEW IV INSERTED IN LEFT FOOT. ORDER FOR FOOT IV ENTERED.
[2021-08-09 12:00] VITALS: BP 133/81
[2021-08-09] MEDS: SKINTEGRITY HYDROGEL TP SCH (13:00)
[2021-08-09] MEDS ORDERED: MERO1PDS7 IV (15:20)
[2021-08-09 16:00] VITALS: BP 116/68
--- NOTE | 2021-08-09 16:13 | NUR ---
PT WILL TRANSFER BACK TO [facility] ROOM 1. NUMBER FOR REPORT [phone]. WAITING ON APPROVAL AND TRANSPORTATION TIME AND CONFIRMATIONS.
--- NOTE | 2021-08-09 18:32 | NUR ---
PT CLEANED AND CHANGED. WOUND CARE PERFORMED AND PICTURES TAKEN. REPORT GIVEN TO ELZBIETA AT [facility] AND [facility]. ALL SAFETY MEASURES IN PLACE. [facility] TRANSPORTING PT TO [facility] ROOM 1
--- NOTE | 2021-08-09 18:35 | NUR ---
PT CLEANED AND CHANGED. WOUND CARE GIVEN AND PICTURES TAKEN. REPORT GIVEN TO ELZBIETA MONACO AT [facility] AND [facility]. [facility] TRANSPORTING PT TO [facility] ROOM 1. ALL SAFETY MEASURES IN PLACE
== END 2021-08-09 18:35 | DRG 720 ==
LOC: MED 13:36 → MMU 16:21 → MIC 18:47 → MTU 08-05 17:00
PROVIDERS: ADMIT Hospitalist; ATTEND Hospitalist
PROC: 5A1955Z Respiratory Ventilation, Greater than 96 Consecutive Hours (ICD-10-PCS; 2021-08-04)
PROC: 30233N1 Transfusion of Nonautologous Red Blood Cells into Peripheral Vein, Percutaneous Approach (ICD-10-PCS; principal; 2021-08-06)
PROC: 30233N1 Transfusion of Nonautologous Red Blood Cells into Peripheral Vein, Percutaneous Approach (ICD-10-PCS; 2021-08-08)
DX: A41.50 Gram-negative sepsis, unspecified (principal); J96.21 Acute and chronic respiratory failure with hypoxia; R65.21 Severe sepsis with septic shock; J18.9 Pneumonia, unspecified organism; G93.1 Anoxic brain damage, not elsewhere classified; G82.20 Paraplegia, unspecified; L89.93 Pressure ulcer of unspecified site, stage 3; D63.8 Anemia in other chronic diseases classified elsewhere; N17.9 Acute kidney failure, unspecified; Z20.822 Contact with and (suspected) exposure to COVID-19; R13.10 Dysphagia, unspecified; R74.01 Elevation of levels of liver transaminase levels; Z93.0 Tracheostomy status; Z99.11 Dependence on respirator [ventilator] status; Z93.1 Gastrostomy status; Z91.51 Personal history of suicidal behavior; Z90.49 Acquired absence of other specified parts of digestive tract; Z86.74 Personal history of sudden cardiac arrest; N18.6 End stage renal disease; Z99.2 Dependence on renal dialysis
CPT/HCPCS: 36415; 71045; 80053; 80202; 81003; 82140; 83605; 83690; 83735; 84484; 85025; 85610; 86886; 86900; 86901; 86920; 87040; 87070; 87081; 87086; 87205; 89220; 93005; 94003; 99285; A6248; C9113; J0692; J2185; J2543; J3370; J7060; P9016; P9046; Q0092

== ENCOUNTER 2021-09-19 18:03 | Inpatient (IN) | payer OTHER ==
[~2021-09-19] VITALS: Ht 188 cm; Wt 112.5 kg
[~2021-09-19 18:03] MED LIST: MERO1PDS7 IV
--- NOTE | 2021-09-19 18:03 | NUR ---
[facility] ALS TO ER BED 10
[2021-09-19 18:05] VITALS: BP 104/61
[2021-09-19] MEDS ORDERED: NACL 0.9% 1,000 ML IV SCH (18:15)
--- NOTE | 2021-09-19 18:16 | NUR ---
41Y MALE BIBA FROM [facility] DUE TO LOW H&H. HGB 6.6 HCT 21.4. PT NON-VERBAL AND TRACH TO VENT. NO SIGNS OF DISTRESS NOTED. PT HAS G-TUBE AND HAWTHORNE IN PLACE FROM [facility]. MINOR WOUND NOTED ON PT ABDOMEN REGION. 22G IV ESTABLISHED IN R HAND FROM [facility]. PMH: RESP FAILURE, ANEMIA, GERD, HTN NKA
--- NOTE | 2021-09-19 18:20 | NUR ---
XRAY AT BEDSIDE
--- NOTE | 2021-09-19 18:21 | NUR ---
LAB BEDSIDE COLLECTING BLOODWORK
--- NOTE | 2021-09-19 18:31 | NUR ---
Miguel booth in [facility] - 09/19/21 at 1834 by MEDALAN OBTAINED VERBAL CONSENT FROM MOTHER VIA TELEPHONE TO PROVIDE PATIENT WITH BLOOD TRANSFUSION. SECOND RN OBTAINED VERBAL CONSENT FROM MOTHER WELL
--- NOTE | 2021-09-19 18:33 | NUR ---
URINE COLLECTED AND HANDED TO FINANCE ANALYST BEDSIDE
--- NOTE | 2021-09-19 18:34 | NUR ---
OBTAINED VERBAL CONSENT FROM MOTHER VIA TELEPHONE TO PROVIDE PATIENT WITH BLOOD TRANSFUSION. SECOND RN OBTAINED VERBAL CONSENT FROM MOTHER WELL
--- NOTE | 2021-09-19 18:35 | NUR ---
BLOOD TRANSFUSION CONSENT SIGNED AND PLACED INTO PATIENT CHART
[2021-09-19] MEDS ORDERED: cefTRIAXone 1,000 MG VIAL ONE (18:37)
--- NOTE | 2021-09-19 18:44 | NUR ---
PT PROVIDED WITH WARM BLANKET BEDSIDE
[2021-09-19 18:53] LABS: LYMPHOCYTES # (AUTO) 1.7 K/uL (2.0-11.5); RED BLOOD CELL COUNT(AUTO) 2.36 MIL/uL (4.20-6.10)
[2021-09-19 18:53] LABS: APPEARANCE,URINE CLEAR (CLEAR); BILIRUBIN,URINE NEGATIVE (NEGATIVE); BLOOD, URINE TRACE-I (NEGATIVE); COLOR,URINE YELLOW (YELLOW); LEUKOCYTE ESTERASE ,URINE 2+ (NEGATIVE); NITRITE, URINE NEGATIVE (NEGATIVE); UGLUCOSE NEGATIVE (NEGATIVE)
[2021-09-19 18:57] LABS: BASOPHILS % (AUTO) 0.4 % (0.0-2.0); EOSINOPHILS # (AUTO) 0.3 K/uL (0-0.4); EOSINOPHILS % (AUTO) 3.8 % (0.0-4.0); HEMATOCRIT 21.9 % (36-52); LYMPHOCYTES % (AUTO) 18.6 % (20.5-51.1); MEAN CORPUSCULAR HEMOGLOBIN 29 pg (27-31); MEAN CORPUSCULAR HGB CONC 31 g/dL (33-37); MEAN CORPUSCULAR VOLUME 92.9 fL (80-94); MONOCYTES # (AUTO) 0.8 K/uL (0.8-1.0); MONOCYTES % (AUTO) 8.7 % (1.7-9.3); NEUTROPHILS # (AUTO) 6.2 K/uL (1.8-7.7); NEUTROPHILS % (AUTO) 68.5 % (42.2-75.2); PLATELET COUNT (AUTO) 419 K/uL (140-450); RED CELL DISTRIBUTION WIDTH 19.5 % (11.6-13.7); WHITE BLOOD COUNT (AUTO) 9.1 K/uL (4.8-10.8)
[2021-09-19 18:58] LABS: RBC,URINE 0-5 /HPF (0-5)
[2021-09-19 19:04] LABS: HEMOGLOBIN 6.8 g/dL (12.0-18.0)
[2021-09-19 19:06] LABS: ANION GAP 8.4 (8-16); CARBON DIOXIDE 32.8 mmol/L (21-32); CREATININE 0.7 mg/dL (0.6-1.3); POTASSIUM 4.2 mmol/L (3.5-5.1); TOTAL BILIRUBIN 0.2 mg/dL (0.0-1.0)
--- NOTE | 2021-09-19 19:09 | NUR ---
WALKED MIKKI HICKS TO LAB
[2021-09-19] MEDS ORDERED: FERR325E14 GT (19:10)
[2021-09-19] MEDS ORDERED: ASCO500T95 GT (19:10)
[2021-09-19] MEDS ORDERED: DEXT1DRO4 OP (19:10)
[2021-09-19] MEDS ORDERED: LEVE250T7 GT (19:10)
[2021-09-19] MEDS ORDERED: HYDR-5080 GT (19:10)
[2021-09-19] MEDS ORDERED: LOSA100T1 GT (19:10)
[2021-09-19] MEDS ORDERED: FAMO-90 GT (19:10)
--- NOTE | 2021-09-19 19:10 | NUR ---
med rec completed
--- NOTE | 2021-09-19 19:18 | NUR ---
Pt report given to donnell matias. Transfer of care at this time.
[2021-09-19] MEDS ORDERED: ALBUTEROL 0.083% 2.5 MG/3 ML NEBU INH PRN (19:30)
[2021-09-19] MEDS ORDERED: MORPHINE SULFATE 2 MG/ML SYR IVP PRN (19:30)
[2021-09-19] MEDS ORDERED: ONDANSETRON 4 MG/2 ML VIAL IVP PRN (19:30)
[2021-09-19] MEDS ORDERED: ACETAMINOPHEN 650 MG/20.3 ML UDC GT PRN (19:30)
[2021-09-19] MEDS ORDERED: HYDROcodone/APAP 5/325 MG 1 TAB TAB GT PRN (19:30)
[2021-09-19] MEDS ORDERED: DEXT 5% / NACL 0.9% 500 ML IV ONE (19:45)
--- NOTE | 2021-09-19 19:55 | NUR ---
Consent signed per family memeber agreeing to administration of blood. Blood has been type and crossmatched. Blood sent from blood bank. Information on unit of blood checked against patient wristband at bedside by two nurses. All information matches. Patient or responsible democrat informed of potential complications associated with blood transfusion. Informed of possible transfusion reaction symptoms. Aware of need to notify nurse at once of itching, shortness of breath, flushing, feeling of impending doom, or other symptoms not previously present. Vital signs taken within 5 minutes prior to initiation of transfusion. RN will remain with patient for first 15 minutes of transfusion at which time vital signs will be re-assessed.
--- NOTE | 2021-09-19 21:08 | NUR ---
lab called saying the second unit of blood is ready.
--- NOTE | 2021-09-19 21:10 | NUR ---
TRANSFER PT FROM ER TO MED SURG/TELE. PT IS TRACH TO VENT WITH PORTEX 8, ON SETTING AC/VC 475, R14, PEEP 5 FIO2 40% VENT IS PLUGGED INTO THE RED OUTLET, AMBU BAG AT BEDSIDE. NO SIGN OF RESPIRATORY DISTRESS NOTED, AIRWAY PATENT ALARMS SET AUDIBLE. WILL CONTINUE TO MONITOR.
--- NOTE | 2021-09-19 21:14 | NUR ---
pt tx to the floor
--- NOTE | 2021-09-19 21:17 | NUR ---
PT TRANSPORTED VIA GURNEY. PT IS NONVERBAL. TRACH TO VENT. SATING 100%. VENT SETTINGS ARE FIO2 40%, VT 475, RT 14, PEEP 5 ON A/C VC. PT HAS 20 GAUGE ON LEFT HAND WITH BLOOD TRANSFUSING CURRENTLY. ALSO, 22 GAUGE ON RIGHT HAND SL. PT HAS WOUND ON CENTER OF ABD, RIGHT FOOT. ALSO, HAS G-TUBE PLACED PATENT. PT HAS CLEAR LUNG SOUNDS BILATERALLY. NO HEART MURMURS NOTED. S1/S2 HEARD. ABD SOFT AND NON-TENDER. VSS PT IS AFEBRILE. BED AT THE LOWEST POSITION. HEAD OF BED RAISED. SEIZURE PRECAUTION IN PLACE. ALL SAFETY MEASURES TAKEN. WILL CONTINUE TO MONITOR THE PT.
[2021-09-19 21:20] VITALS: BP 110/61
--- NOTE | 2021-09-19 21:20 | NUR ---
Patient will be admitted to care of DR CARTER. Admited to TELE. Will go to room 124B. Belongings list completed. Report to JACINDA THORNE.
--- NOTE | 2021-09-19 21:25 | NUR ---
BLOOD TRANSFUSION FINISHED. NO BLOOD TRANSFUSION REACTION NOTED. WILL GET 2ND UNIT SOON POSSIBLE. WILL CONTINUE TO MONITOR THE PT.
--- NOTE | 2021-09-19 22:20 | NUR ---
2ND UNIT OF BLOOD TRANSFUSION STARTED. WILL MONITOR FOR ANY BLOOD TRANSFUSION REACTION.
[2021-09-19 22:40] VITALS: BP 111/59
[2021-09-19] MEDS: FAMOTIDINE 20 MG TAB GT SCH (22:44)
[2021-09-19] MEDS: FERROUS SULFATE 300 MG/5 ML UDC GT SCH (22:45)
[2021-09-19] MEDS: levETIRAcetam 100 MG/ML ORASYR GT SCH (22:45)
[2021-09-20] VITALS: BP 107/59
[2021-09-20 01:10] VITALS: BP 107/59
--- NOTE | 2021-09-20 01:10 | NUR ---
2ND UNIT OF BLOOD TRANSFUSION FINISHED. NO BLOOD TRANSFUSION REACTION NOTED. WILL CONTINUE TO MONITOR THE PT.
--- NOTE | 2021-09-20 01:30 | NUR ---
PT WAS CLEANED AND CHANGED. PHOTO TAKEN OF SACRAL PRESSURE ULCER. DRESSING WAS CHANGED.
--- NOTE | 2021-09-20 03:15 | NUR ---
PT IS SLEEPING IN BED COMFORTABLY. PT IS NOT IN ANY DISTRESS. BREATHING EVEN AND UNLABORED. BED AT THE LOWEST POSITION. HEAD OF BED RAISED. CALL LIGHT WITHIN REACH. ALL SAFETY MEASURES TAKEN. WILL CONTINUE TO MONITOR THE PT.
[2021-09-20 04:00] VITALS: BP 97/52
--- NOTE | 2021-09-20 05:30 | NUR ---
PT WAS CLEANED AND CHANGED. SACRAL AND ABD DRESSING CHANGED. WILL CONTINUE TO MONITOR THE PT.
--- NOTE | 2021-09-20 07:20 | NUR ---
ENDORSED PT TO DAY SHIFT RN FOR CONTINUITY OF CARE. PT IS STABLE.
[2021-09-20 07:23] LABS: BASOPHILS % (AUTO) 0.3 % (0.0-2.0); EOSINOPHILS # (AUTO) 0.2 K/uL (0-0.4); EOSINOPHILS % (AUTO) 2.1 % (0.0-4.0); HEMOGLOBIN 8.1 g/dL (12.0-18.0); LYMPHOCYTES # (AUTO) 1.5 K/uL (2.0-11.5); LYMPHOCYTES % (AUTO) 18.1 % (20.5-51.1); MEAN CORPUSCULAR HEMOGLOBIN 29 pg (27-31); MEAN CORPUSCULAR HGB CONC 32 g/dL (33-37); MEAN CORPUSCULAR VOLUME 89.8 fL (80-94); MONOCYTES # (AUTO) 0.7 K/uL (0.8-1.0); MONOCYTES % (AUTO) 8.6 % (1.7-9.3); NEUTROPHILS # (AUTO) 6.1 K/uL (1.8-7.7); NEUTROPHILS % (AUTO) 70.9 % (42.2-75.2); PLATELET COUNT (AUTO) 368 K/uL (140-450); RED BLOOD CELL COUNT(AUTO) 2.79 MIL/uL (4.20-6.10); RED CELL DISTRIBUTION WIDTH 19.1 % (11.6-13.7); WHITE BLOOD COUNT (AUTO) 8.6 K/uL (4.8-10.8)
--- NOTE | 2021-09-20 07:25 | NUR ---
RECEIVED PT FROM NIGHT RN, RT SUCTIONING PT ON BEDSIDE, PT IS ON A TRACH TO VENT AT FIO2 AT 30%, RATE AT 14/MIN, VT IS 475 AND PEEP IS 5, PT IS APHASIC AND HAWTHORNE CATHETER IN PLACE, DRAINING, IV LINES NOTED ON THE RT HAND G. 22 AND ON THE LEFT HAND G. 20 BOTH ON SALINE LOCK, PT O2 SATURATION IS AT 98%, NO SIGN OF DISTRESS NOTED AND WILL CONTINUE TO MONITOR PT.
--- NOTE | 2021-09-20 07:26 | NUR ---
PT IS ON SEIZURE PRECAUTIONS FOR HX OF SEIZURE, SIDE RAILS ARE UP AND PADDED, SAFETY AND FALL PRECAUTION ENFORCED.
[2021-09-20 07:35] LABS: ANION GAP 11.4 (8-16); CARBON DIOXIDE 29.4 mmol/L (21-32); CREATININE 0.7 mg/dL (0.6-1.3); POTASSIUM 4.8 mmol/L (3.5-5.1); TOTAL BILIRUBIN 0.4 mg/dL (0.0-1.0)
[2021-09-20 08:00] VITALS: BP 121/63
[2021-09-20] MEDS: FAMOTIDINE 20 MG TAB GT SCH (08:23)
[2021-09-20] MEDS: levETIRAcetam 100 MG/ML ORASYR GT SCH (08:23)
[2021-09-20] MEDS: FERROUS SULFATE 300 MG/5 ML UDC GT SCH (08:23)
--- NOTE | 2021-09-20 08:23 | NUR ---
PT WAS GIVEN THE SCHEDULED AM MEDICATIONS, VIA G-TUBE, NO RESIDUAL NOTED, INTACT AND PATENT, HAWTHORNE CATHETER DRAINED 300ML OF URINE, LIGHT YELLOW.
--- NOTE | 2021-09-20 08:30 | NUR ---
DR. SHARMA CAME TO THE PT'S ROOM AND ASSESSED PT, SAID THAT HE WILL PROBABLY SEND PT BACK TO SNF, HGB TODAY IS 8.1.
[2021-09-20] MEDS ORDERED: ROC1PM IV (08:49)
[2021-09-20] MEDS ORDERED: LOSARTAN 50 MG TAB GT SCH (09:00)
[2021-09-20] MEDS ORDERED: ASCORBIC ACID 500 MG/5 ML ORASYR GT SCH (09:00)
[2021-09-20] MEDS ORDERED: FERR1TAB42 GT (09:11)
--- NOTE | 2021-09-20 11:00 | NUR ---
CALLED [facility] AT [phone] AND GAVE REPORT TO JACINDA DAVISON REGARDING CARE MANAGEMENT TO PT. PT WILL BE TRANSPORTED BY [facility] AND [facility] WILL BE AT 12PM AND IS GOING TO 2C UNDER THE SERVICE OF DR. VALENTIN.
[2021-09-20 11:03] VITALS: BP 108/68
--- NOTE | 2021-09-20 11:30 | NUR ---
WOUND ASSESSMENT AND PICTURES WERE TAKEN AND ATTACHED TO CHART.
[2021-09-20 12:00] VITALS: BP 106/54
--- NOTE | 2021-09-20 12:31 | NUR ---
DISCHARGED PT TO [facility]OM[facility] BY [facility] TRANSPORT PERSONNEL, ON A TRACH TO VENT, G-TUBE INTACT AND ABDOMINAL AND SACRAL DRESSINGS ARE IN PLACE, HAWTHORNE CATHETER IS IN PLACE WELL. IV LINES INTACT AND ON SALINE LOCKS. PT IS STABLE AT THIS TIME.
--- NOTE | 2021-09-21 08:34 | NUR ---
WOUND CARE CONSULT NOT DONE. PT. DISCHARGED.
== END 2021-09-20 12:32 | DRG 463 ==
LOC: MED 18:03 → MTU 19:40
PROVIDERS: ADMIT Student in an Organized Health Care Education/Training Program; ATTEND Student in an Organized Health Care Education/Training Program
PROC: 30233N1 Transfusion of Nonautologous Red Blood Cells into Peripheral Vein, Percutaneous Approach (ICD-10-PCS; principal; 2021-09-19)
PROC: 5A1935Z Respiratory Ventilation, Less than 24 Consecutive Hours (ICD-10-PCS; 2021-09-19)
DX: N39.0 Urinary tract infection, site not specified (principal); J96.11 Chronic respiratory failure with hypoxia; D63.8 Anemia in other chronic diseases classified elsewhere; Z93.0 Tracheostomy status; Z20.822 Contact with and (suspected) exposure to COVID-19; I10 Essential (primary) hypertension; R13.10 Dysphagia, unspecified; R53.81 Other malaise; Z79.899 Other long term (current) drug therapy; Z93.1 Gastrostomy status; Z74.01 Bed confinement status
CPT/HCPCS: 36415; 36430; 71045; 80053; 81001; 85025; 86886; 86900; 86901; 86920; 87040; 87081; 87086; 93005; 94002; 94003; 96365; 99285; J0696; J7030; P9016

== ENCOUNTER 2021-11-28 18:29 | Emergency (ER) | payer OTHER ==
[~2021-11-28] VITALS: Ht 180.3 cm; Wt 112.0 kg
[~2021-11-28 18:29] MED LIST changes: +ACET-1182 PO; +Amikacin Per Pharmacy MC; +FER300L GT; +Gauze TP; +KEP500L GT; -MERO1PDS7 IV; +METO5SOL24 IVP; +ONDA2SOL45 IVP; +PANT40EC PO; +PRON INH; +VANC25SO GT; +[UNRECOGNIZED DRUG - CODE] IV; +[UNRECOGNIZED DRUG - CODE] IV; +[UNRECOGNIZED DRUG - CODE] IV
--- NOTE | 2021-11-28 18:29 | NUR ---
PT BIBA FROM [facility] TAKEN TO ER BED 10.
[2021-11-28 18:40] VITALS: BP 104/70
--- NOTE | 2021-11-28 18:42 | NUR ---
DR. NEGRON AT PT BEDSIDE FOR FURTHER EVALUATION. SUCCESSFUL REMOVAL OF HAWTHORNE PER ERMD. NO ACTIVE BLEEDING, PT BLADDER EMPTIED 100CC OF BLOODY TINGED URINE.
--- NOTE | 2021-11-28 18:45 | NUR ---
# 16 FR Perez catheter with 10 ml utilizing sterile technique. Immediate return of 350 ml urine noted. Bedside drainage bag placed below level of bladder. Urine sample collected and sent to lab. Pt tolerated procedure well.
--- NOTE | 2021-11-28 18:53 | NUR ---
41 Y/O M[place] [facility] [place]NE CATHETER REPLACEMENT. PER EMT NURSE STATED HAWTHORNE WAS NOT DRAINING, ATTEMPTED TO DEFLATE BALLOON. CUT HAWTHORNE TUBING WITH UNSUCCESSFUL ATTEMPT TO REMOVE CATHETER. PT IS TRACHEA TO VENT GCS 6 PER BASELINE, A&OX0. PMH: HYPOXIA, ANOXIC BRAIN DAMAGE, HTN, QUADRIPLEGIA (SEE CHART FOR EXTENSIVE HISTORY) NKA
[2021-11-28] MEDS ORDERED: CEPH-588 PO (19:04)
--- NOTE | 2021-11-28 19:04 | NUR ---
CALLED [facility], SPOKE WITH JACINDA NOBLE TO GIVE REPORT FOR PENDING TRANSFER.
--- NOTE | 2021-11-28 19:16 | NUR ---
GAVE REPORT TO JACINDA PEREZ. TRANSFER OF CARE AT THIS TIME,
--- NOTE | 2021-11-28 20:00 | NUR ---
[facility] TRANSPORT AT BEDSIDE
[2021-11-28 20:10] VITALS: BP 104/70
--- NOTE | 2021-11-28 20:10 | NUR ---
Patient discharged with v/s stable. Written and verbal after care instructions provided in pt packet. Ambulance Transport with to [facility]. Called to give report [place] [facility]'s [place]ss.
--- NOTE | 2021-11-28 20:11 | NUR ---
PT TAKEN BY [facility] TRANSP[facility]
== END 2021-11-28 20:10 ==
LOC: MED 18:29
DX: S37.30XA Unspecified injury of urethra, initial encounter (principal); T83.091A Other mechanical complication of indwelling urethral catheter, initial encounter; Y73.8 Miscellaneous gastroenterology and urology devices associated with adverse incidents, not elsewhere classified; Y93.89 Activity, other specified; Y92.89 Other specified places as the place of occurrence of the external cause; Y99.8 Other external cause status
CPT/HCPCS: 51702; 99284

== ENCOUNTER 2022-01-23 15:03 | Inpatient (IN) | payer OTHER ==
[~2022-01-23] VITALS: Ht 180.3 cm; Wt 95.3 kg
[~2022-01-23 15:03] MED LIST changes: +CEPH-588 PO
[2022-01-23 15:09] VITALS: BP 105/67
[2022-01-23] MEDS ORDERED: ACETAMINOPHEN 650 MG SUPP RC ONE ×2 (15:30→18:05)
--- NOTE | 2022-01-23 15:32 | NUR ---
PT BIB SNF C/C FEVER. PT NON VERBAL AT BASELINE. PT STACH ON MONITOR. HX OF BRAIN ANOXIA S/P SI ATTEMPT. IV INSERTED TO LEFT HAND #[id number] BLOOD SENT TO LAB.
--- NOTE | 2022-01-23 15:34 | NUR ---
COOLING MEAUSRES INITIATED.
[2022-01-23 15:38] LABS: BASOPHILS # (AUTO) 0.1 K/uL (0.00-0.22); BASOPHILS % (AUTO) 0.4 % (0.0-2.0); EOSINOPHILS # (AUTO) 0.1 K/uL (0-0.4); EOSINOPHILS % (AUTO) 0.5 % (0.0-4.0); HEMATOCRIT 31.2 % (36-52); HEMOGLOBIN 9.7 g/dL (12.0-18.0); LYMPHOCYTES # (AUTO) 1.2 K/uL (2.0-11.5); LYMPHOCYTES % (AUTO) 5.4 % (20.5-51.1); MEAN CORPUSCULAR HEMOGLOBIN 29 pg (27-31); MEAN CORPUSCULAR HGB CONC 31 g/dL (33-37); MEAN CORPUSCULAR VOLUME 93.7 fL (80-94); MONOCYTES # (AUTO) 1.5 K/uL (0.8-1.0); MONOCYTES % (AUTO) 6.7 % (1.7-9.3); PLATELET COUNT (AUTO) 538 K/uL (140-450); RED BLOOD CELL COUNT(AUTO) 3.33 MIL/uL (4.20-6.10); RED CELL DISTRIBUTION WIDTH 16.3 % (11.6-13.7)
[2022-01-23 16:11] LABS: ALBUMIN 2.3 g/dL (3.4-5.0); ANION GAP 15.5 (8-16); CARBON DIOXIDE 30.7 mmol/L (21-32); CREATININE 1.4 mg/dL (0.6-1.3); POTASSIUM 4.2 mmol/L (3.5-5.1); TOTAL BILIRUBIN 0.5 mg/dL (0.0-1.0)
[2022-01-23] MEDS ORDERED: NACL 0.9% 1,000 ML IV ONE ×2 (16:20)
[2022-01-23] MEDS ORDERED: PIPERACILLIN/TAZOBACTAM 3.375 GM in DEXTROSE 5% 50 ML IV ONE (16:20)
[2022-01-23] MEDS ORDERED: VANCOMYCIN 1,000 MG in DEXTROSE 5% 250 ML IV ONE (16:20)
[2022-01-23] MEDS ORDERED: HYDROcodone/APAP 5/325 MG 1 TAB TAB PO PRN (18:00)
[2022-01-23] MEDS ORDERED: POTASSIUM CHLORIDE 10 MEQ TABER PO PRN (18:00)
[2022-01-23] MEDS ORDERED: MORPHINE SULFATE 4 MG/ML SYR IVP PRN (18:00)
[2022-01-23] MEDS ORDERED: ONDANSETRON 4 MG/2 ML VIAL IVP PRN (18:00)
[2022-01-23] MEDS ORDERED: ACETAMINOPHEN 325 MG TAB PO PRN (18:00)
[2022-01-23] MEDS ORDERED: MAGNESIUM OXIDE 400 MG TAB PO PRN (18:00)
[2022-01-23] MEDS ORDERED: PIPERACILLIN/TAZOBACTAM 3.375 GM VIAL IV ONE (18:04)
[2022-01-23] MEDS ORDERED: VANCOMYCIN 1,000 MG VIAL ONE (18:04)
[2022-01-23 18:33] LABS: APPEARANCE,URINE SL CLOUDY (CLEAR); BILIRUBIN,URINE NEGATIVE (NEGATIVE); BLOOD, URINE 1+ (NEGATIVE); COLOR,URINE YELLOW (YELLOW); LEUKOCYTE ESTERASE ,URINE 3+ (NEGATIVE); NITRITE, URINE NEGATIVE (NEGATIVE); PH,URINE 8.5 (5.0-9.0); UGLUCOSE NEGATIVE (NEGATIVE)
--- NOTE | 2022-01-23 18:58 | NUR ---
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 pts f/c leaking, new 16f catheter placed urine draining to gravity.
[2022-01-23 19:14] LABS: WBC,URINE 16-25 (MOD) /HPF (0-5)
[2022-01-23 19:15] LABS: CALCIUM OXALATE CRYSTALS,UR 0-10 /HPF (None Seen); TRICHOMONAS,URINE None Seen /HPF (None Seen); YEAST,URINE None Seen /HPF (None Seen)
[2022-01-23 19:16] LABS: TRIPLE PHOSPHATE CRYSTAL,UR 0-10 /HPF (None Seen)
[2022-01-23] MEDS: NACL 0.9% 1,000 ML IV SCH (19:31)
--- NOTE | 2022-01-23 21:10 | NUR ---
Patient will be admitted to care of Telemetry nurse Walker MONACO. Admited to telemetry. Will go to room 122B. Belongings list completed. Report to Shanelletry nurse Walker MONACO. Shanelletry nurse Walker MONACO verbalized understanding of report, no further questions from Shanelletry nurse Walker MONACO. Telemetry nurse Walker MONACO stated "I will give the 5,000 units of heparin that is due." Addendum: 01/23/22 at 2154 by [id number] Patient will be admitted to care of Telemetry nurse Walker MONACO. Admited to telemetry. Will go to room 122B. Belongings list completed. Report to Shanelletry nurse Walker MONACO. Shanelletry nurse Walker MONACO verbalized understanding of report, no further questions from Shanelletry nurse Walker MONACO. Telemetry nurse Walker MONACO stated "I will give the 5,000 units of heparin that is due." Pictures of all wounds taken, printed, and given to Shanelletry nurse Walker MONACO.
--- NOTE | 2022-01-23 21:33 | NUR ---
RECEIVED REPORT FROM ER NURSE YUSUF. PATIENT IS A&O X0, ON TRACH TO VENT. PATIENT HAS 4 WOUNDS NONE OF WHICH HAVE DRESSINGS ON THEM. ER NURSE OFFERED TO TAKE PICTURES OF WOUNDS WHEN THE PATIENT ARRIVED ON THE UNIT SINCE THERE WERE NONE TAKEN. UPON DOING SO ER NURSE INFORMED ME THAT THEY HADN'T REALIZED PATIENT HAD POOPED BEFORE BEING BROUGHT TO UNIT. I ASSESSED THE PATIENT AND SAW POOP WAS ALL OVER LEGS AND ON FEET OF PATIENT. POOP WAS LIQUID AND GREEN. CHARGE NURSE LAMBERTO AND ANDREW CAREY CAME IN TO HELP CLEAN THE PATIENT. ER NURSE AND EMT LEFT ROOM AND WENT BACK TO ER. PATIENT WAS THOROUGHLY CLEANED. DRESSING WAS PLACED ON SACRAL WOUND AFTER WOUND WAS THOROUGHLY CLEANED, WHICH HAD BEEN COVERED IN FECAL MATTER. PATIENT HAS 20G IN LEFT HAND, RUNNING NS AT 80. PATIENT HAS HAWTHORNE CATHETER. WILL CONTINUE TO OBSERVE PATIENT.
[2022-01-24] VITALS: BP 101/58
--- NOTE | 2022-01-24 00:45 | NUR ---
OBTAINED VITALS OF PATIENT. VITALS WERE: TEMP 100.6, HR 121, BP 101/58, O2 99%, RR 14. CHECKED PATIENT'S CHART TYLENOL IS ON FILE. WILL PROVIDE INTERVENTIONS AND OBSERVE PATIENT.
[2022-01-24] MEDS: PIPERACILLIN/TAZOBACTAM 3.375 GM in DEXTROSE 5% 50 ML IV SCH ×4 (00:50→18:24)
[2022-01-24] MEDS ORDERED: CRUSHER, PILL MC ONE (01:14)
--- NOTE | 2022-01-24 02:00 | NUR ---
PROVIDED COOLING MEASURES AND TYLENOL TO PATIENT FOR FEVER. REASSESSED PATIENT'S FEVER AT 0145. TEMPERATURE WAS 99.5. INTERVENTIONS WERE AFFECTIVE, WILL CONTINUE TO OBSERVE PATIENT.
[2022-01-24] MEDS: NACL 0.9% 1,000 ML IV SCH (03:20)
[2022-01-24 04:00] VITALS: BP 96/54
--- NOTE | 2022-01-24 04:00 | NUR ---
OBTAINED 0400 VITALS. VITALS WERE: TEMP 96.6, HR 94, BP 96/54, O2 98%, RR 14. BREATHING WAS NORMAL WITH SYMMETRICAL RISE AND FALL OF CHEST. WILL CONTINUE TO OBSERVE PATIENT.
--- NOTE | 2022-01-24 06:00 | NUR ---
PATIENT HAD POOPED AGAIN. PHYSICIAN AUTHORIZED ORDER TO DO C-DIFF AND INSERT RECTAL TUBE. PATIENT WAS CLEANED WITH THE ASSISTANCE OF CHARGE NURSE LAMBERTO AND ANDREW CAREY. RECTAL TUBE WAS INSERTED SUCCESSFULLY, NEW DRESSING WAS PLACE ON SACRAL WOUND AFTER WOUND HAD BEEN THOROUGHLY CLEANED. WILL CONTINUE TO OBSERVE PATIENT.
[2022-01-24 06:31] LABS: ALBUMIN 1.8 g/dL (3.4-5.0); ANION GAP 14.2 (8-16); CARBON DIOXIDE 26.4 mmol/L (21-32); CREATININE 1.5 mg/dL (0.6-1.3); POTASSIUM 3.6 mmol/L (3.5-5.1); TOTAL BILIRUBIN 0.5 mg/dL (0.0-1.0)
[2022-01-24 06:43] LABS: BASOPHILS % (AUTO) 0.1 % (0.0-2.0); EOSINOPHILS % (AUTO) 0.1 % (0.0-4.0); HEMATOCRIT 27.9 % (36-52); HEMOGLOBIN 8.5 g/dL (12.0-18.0); LYMPHOCYTES # (AUTO) 1.9 K/uL (2.0-11.5); LYMPHOCYTES % (AUTO) 9.3 % (20.5-51.1); MEAN CORPUSCULAR HEMOGLOBIN 29 pg (27-31); MEAN CORPUSCULAR HGB CONC 31 g/dL (33-37); MEAN CORPUSCULAR VOLUME 94.9 fL (80-94); MONOCYTES # (AUTO) 0.9 K/uL (0.8-1.0); MONOCYTES % (AUTO) 4.4 % (1.7-9.3); NEUTROPHILS # (AUTO) 17.1 K/uL (1.8-7.7); NEUTROPHILS % (AUTO) 86.1 % (42.2-75.2); PLATELET COUNT (AUTO) 425 K/uL (140-450); RED BLOOD CELL COUNT(AUTO) 2.94 MIL/uL (4.20-6.10); RED CELL DISTRIBUTION WIDTH 16.8 % (11.6-13.7); WHITE BLOOD COUNT (AUTO) 19.9 K/uL (4.8-10.8)
--- NOTE | 2022-01-24 07:35 | NUR ---
RECEIVED REPORT FROM NIGHTSARFT NURSE YUSUF FOR CONTINUITY OF CARE. PT IN STABLE CONDITION. PT CURRENTLY SLEEPING, AROUSED TO NAME AND SHAKING, BUT DOES NOT TRACK WITH EYES. PT IS TRACH TO VENT, VENT SETTINGS FOLLOWS: MODE A/C VC; FIO2 28%; VT 500; RATE 14/MIN; PEEP 5; PMAX 40; SPO2 96%. PT IS INCONTINENT OF THE BOWEL AND BLADDER, WITH HAWTHORNE AND RECTAL TUBE IN PLACE. DRESSINGS ON SACRUM AND LEFT HEEL INTACT. ULCER ON POSTERIOR RIGHT LOWER EXTREMITY OPEN TO AIR WITH MILD SEROUS/PURULENT DRAINAGE NOTED. RASH-LIKE REDNESS NOTED ON LEFT KNEE. NO SIGNS OF DISTRESS NOTED AT THIS TIME.
[2022-01-24] MEDS ORDERED: DEXTROSE 5% 1,000 ML IV SCH (07:45)
--- NOTE | 2022-01-24 07:45 | NUR ---
ENDORSED TO DAY SHIFT NURSE ROSA FOR CONTINUITY OF CARE. PATIENT IS STABLE.
[2022-01-24] MEDS: ALBUTEROL SULFATE/IPRATROPIU 3 ML SOL IH SCH ×2 (07:52→13:49)
--- NOTE | 2022-01-24 07:52 | NUR ---
RECEIVED ON A JuxinliSCAPE R860 VENTILATOR PLUGGED INTO RED OUTLET TOLERATING WELL WITHOUT ADVERSE REACTIONS NOTED TO A PORTEX DCT #8 AIRWAY SECURED WITH A TRACH TUE CUFF PRESSURE CHECKED NOTED AMBU BAG AT BEDSIDE STABLE RESTING WELL GOOD CHEST RISE DEEP TRACHEAL SUCTION FOR LARGE THIN YELLOW SECRETIONS AIRWAY PATENT SPUTUM CULTURE OBTAINED FORWARDED TO LAB
[2022-01-24 08:00] VITALS: BP 104/59
--- NOTE | 2022-01-24 08:00 | NUR ---
RT AT THE BEDSIDE PERFORMING TRACH CARE AND BREATHING TREATMENTS, VENT SETTINGS UNCHANGED, PT IN STABLE CONDITION.
--- NOTE | 2022-01-24 09:34 | NUR ---
PATIENT HAS BEEN SCREENED AND CATEGORIZED HIGH NUTRITION RISK. PATIENT WILL BE SEEN WITHIN 1-2 DAYS OF ADMISSION. RECEIVED FNS REFERRAL. 01/24/22-01/25/[address] BABAK [address]
--- NOTE | 2022-01-24 09:57 | NUR ---
NEW ORDERS RECEIVED, TUBE FEEDING FOR PT TO BEGIN, GLUCERNA WITH Q8H 125CC H20 FLUSHES. GOAL RATE 50ML/HR.
--- NOTE | 2022-01-24 11:09 | NUR ---
STABLE EQUAL CHEST RISE DEEP TRACHEAL SUCTION FOR SMALL THIN PALE YELLOW SECRETIONS AIRWAY PATENT
[2022-01-24] MEDS: NACL 0.45% 1,000 ML IV SCH (11:55)
[2022-01-24 12:00] VITALS: BP 106/59
--- NOTE | 2022-01-24 13:00 | NUR ---
WOUND CARE EVALUATION NOTE: SKIN ASSESSMENT DONE WITH PRIMARY RN ON THIS 41 Y/O PT ADMITTED FROM [facility] TO [facility] WITH PRIMARY DX: PNA, HYPOXIA, SEVERE SEPSIS, UTI, AND MULTIPLE PRESSURE INJURIES AND ARTERIAL ULCER TO RIGHT LATERAL MALLEOLUS. HAS DIARRHEA AND INCONTINENCE. HAS HAWTHORNE CATHETER, RECTAL TUBE, AND GTUBE IN PLACE. CURRENTLY RULING OUT CDIFF. ALL ABOVE INFORMATION OBTAINED FROM ADMISSION H&P. PT IS EYES CPEN, NO EYE CONTACT, SKIN IS WARM AND DRY. BLE WITH HAIR GROWTH, NO EDEMA, BILATERAL DORSAL PEDAL PULSES PRESENT AND NORMAL. POC DISCUSSED WITH PRIMARY RN. INTEGUMENTARY: - TRACH AND GT OSTOMY SITES VERA-WOUND SKIN DRY AND INTACT - UPPER ABDOMINAL SCAR TISSUE FROM COMPLETELY HEALED OLD WOUND. SKIN DRY, FLAKY. PERIWOUND INTACT. - SACRALCOCCYX STAGE 4 PRESSURE ULCER 6 X 9 X 6 CM WITH 2 CM UNDERMINING FROM 7 TO 9 O'CLOCK, WOUND BED PINK, MOIST, GRANULATING, NO SLOUGH. PERIWOUND INTACT. - LEFT LOWER KNEE LACERATION 2 X 2 X 0 CM OPEN LACERATION, WOUND BED PINK, BLANCHABLE REDNESS, NO DRAINAGE, NO ODOR. PERIWOUND PINK HEALED SCAR TISSUE. - RIGHT LATERAL MALLEOLUS ARTERICAL ULCER 2 X 2 X 0 CM, WOUND BED BROWN WITH SLOUGH, MINIMAL SEROUS DRAINAGE, NO ODOR. PERIWOUND INTACT, PINK. RECOMMENDATIONS: - UPPER ABDOMINAL SCAR TISSUE FROM COMPLETELY HEALED OLD WOUND: CLEANSE WITH NS OR SOAPY WATER,PAT DRY, APPLY HYDRAGUARD BID OR PRN OF SOILED. - SACRALCOCCYX STAGE 4 PRESSURE ULCER: CLEANSE WITH NS, PAT DRY, APPLY HYDROGEL TO WOUND BED, APPLY ONE PIECE OF KERLIX LIGHTLY PACK WOUND AND UNDERMINING AREAS, THEN COVER WITH FOAM DRESSING DAILY AND PRN IF SOILED. - LEFT LOWER KNEE LACERATION: CLEANSE WITH NS, PAT DRY, APPLY ADAPTIC DRESSING, COVER WITH COMPOSITE DRESSING DAILY AND PRN IF SOILED. - RIGHT LATERAL MALLEOLUS ARTERIAL ULCER: CLEANSE WITH NS, PAT DRY, APPLY THERAHONEY, COVER WITH COMPOSITE DRESSING DAILY AND PRN IF SOILED. - TURN AND REPOSITION PATIENT Q 2H OR SOONER USE PILLOWS TO KEEP BONY PROMINENCES FROM DIRECT CONTACT WITH SURFACES USE REPOSITIONING WEDGES TO PROVIDE 30-DEGREE ANGLE FOR SIDE LYING POSITIONS OFFLOADING OR FOAM DRESSING TO ALL TUBING TO PREVENT MEDICAL DEVICES RELATED PRESSURE INJURY -RE-ASSESSMENT Q SHIFT EVALUATING AND MANAGING INCONTINENCE MONITOR SKIN CONDITION DURING POSITION CHANGE DO NOT MASSAGE REDNESS, BONY PROMINENCES, DO NOT USE DONUT-TYPE DEVICES FREQUENT VERA-CARE AND PROVIDE BARRIER CREAMS PRN IF SOILING MOISTURE CONTROL BY OFFER BED HUNG/URINAL /ABSORBENT PAD TO WICK AND HOLD MOISTURE. KEEP SKIN DRY AND PROTECT FROM FRICTION -MANAGE FRICTION/SHEAR/MOBILITY KEEP HOB AT THE LOWEST LEVEL OF ELEVATION NO MORE THAN 30 DEGREE UNLESS OTHERWISE CONTRAINDICATED USE LIFT SHEET OR TRANSFER DEVICE TO MOVE PATIENT AND PREVENT LATERAL SHEER. PROTECT HEELS, ELBOWS BONY PROMINENCES WITH SKIN BERRIES OR FOAM DRESSING IF EXPOSED TO FRICTION OFFLOAD BILATERAL HEELS BY PLACING PILLOWS UNDER CALVES AT ALL TIMES, UNLESS OTHERWISE CONTRAINDICATED -PRESSURE REDISTRIBUTION SURFACE THERAPY-TRIPP ISOFLEX UMANG MATTRESS -NUTRITION: PLEASE FOLLOW RD RECOMMENDATIONS AND OFFER NUTRITION SUPPLEMENTS IF ORDERED.
[2022-01-24 16:00] VITALS: BP 101/52
--- NOTE | 2022-01-24 17:42 | NUR ---
STAB;E GOOD CHEST RISE DEEP TRACHEAL SUCTION FOR SMALL THIN PALE YELLOW SECRETIONS AIRWAY PATENT
--- NOTE | 2022-01-24 18:50 | NUR ---
MEDICATED PT WITH PRN NORCO DUE TO FACIAL GRIMACING, LUCERO-BELTRÁN PAIN SCALE SHOWED 8/10 PAIN.
--- NOTE | 2022-01-24 19:07 | NUR ---
[facility] FOR CONTINUITY OF CARE. PT IN STABLE CONDITION.
[2022-01-24 20:00] VITALS: BP 111/68
--- NOTE | 2022-01-24 23:04 | NUR ---
PATIENT NON VERBAL HAS TRACH TO VENT RATE 24,TV 500,FI02 28% PEEP 5. SAT 98%. LUNGS DIMINISH HAS 20 GA LEFT HAND 1/2NS INFUSING AT 80 HOUR HAS G-TUBE INFUSING AT 20 HOUR NO RESIDUAL INCREASE 10CC NOW FEEDING 30CC HOUR FEED ING TUBE FLUSH WITH 125CC WATER EVERY EIGHT HOURS. PATIENT HAS A F/C AND RECTAL TUBE. BOTH DRAINING WELL. PATIENT HAS STAGE IV TO SACRUM. AND RIGHT CALF WITH STAGE THREE. NO SIGNS OF ACUTE DISTRESS.
[2022-01-25] VITALS: BP 108/65
[2022-01-25] MEDS: NACL 0.45% 1,000 ML IV SCH ×2 (00:25→12:55)
[2022-01-25] MEDS: PIPERACILLIN/TAZOBACTAM 3.375 GM in DEXTROSE 5% 50 ML IV SCH ×4 (00:36→18:00)
[2022-01-25] MEDS: THERAHONEY GEL 42.5 GM TP SCH ×2 (01:30→13:00)
[2022-01-25] MEDS: HYDRAGUARD CREAM TP SCH ×2 (01:30→13:00)
[2022-01-25 04:00] VITALS: BP 105/50
[2022-01-25 06:29] LABS: BASOPHILS # (AUTO) 0.1 K/uL (0.00-0.22); BASOPHILS % (AUTO) 0.6 % (0.0-2.0); EOSINOPHILS # (AUTO) 0.6 K/uL (0-0.4); HEMATOCRIT 22.8 % (36-52); HEMOGLOBIN 7.3 g/dL (12.0-18.0); LYMPHOCYTES # (AUTO) 1.7 K/uL (2.0-11.5); LYMPHOCYTES % (AUTO) 11.3 % (20.5-51.1); MEAN CORPUSCULAR HEMOGLOBIN 30 pg (27-31); MEAN CORPUSCULAR HGB CONC 32 g/dL (33-37); MEAN CORPUSCULAR VOLUME 95.1 fL (80-94); MONOCYTES # (AUTO) 0.9 K/uL (0.8-1.0); MONOCYTES % (AUTO) 5.7 % (1.7-9.3); NEUTROPHILS # (AUTO) 12.1 K/uL (1.8-7.7); NEUTROPHILS % (AUTO) 78.4 % (42.2-75.2); PLATELET COUNT (AUTO) 389 K/uL (140-450); RED CELL DISTRIBUTION WIDTH 16.4 % (11.6-13.7); WHITE BLOOD COUNT (AUTO) 15.4 K/uL (4.8-10.8)
[2022-01-25 06:44] LABS: ALBUMIN 1.8 g/dL (3.4-5.0); ANION GAP 12.2 (8-16); CREATININE 1.3 mg/dL (0.6-1.3); POTASSIUM 3.2 mmol/L (3.5-5.1); TOTAL BILIRUBIN 0.3 mg/dL (0.0-1.0)
--- NOTE | 2022-01-25 07:56 | NUR ---
LAB REPORTED TO [facility] THAT PT IS POSITIVE FOR MRSA TO [facility]ES. MESSAGE TEXTED TO DR NASH.
[2022-01-25 08:00] VITALS: BP 102/50
[2022-01-25] MEDS: CHLORHEXADINE GLUC 2% CLOTH TP SCH (08:50)
[2022-01-25] MEDS: MUPIROCIN CA NASAL 2% 1GM TUBE NS SCH (10:00)
[2022-01-25 12:00] VITALS: BP 91/54
--- NOTE | 2022-01-25 13:20 | NUR ---
01/25/2022 RD INITIAL ASSESSMENT COMPLETED. PLEASE REFER TO NUTRITION ASSESSMENT UNDER CARE ACTIVITY FOR ESTIMATED NUTRITIONAL NEEDS. 1.CONTINUE WITH JEVITY 1.2 @ 70ML/HR H2O FLUSH 250 ML Q4H PT TOLERATES. 2.RECOMMEND PROSOURCE BID FOR WOUND ON SACRAL AREA. 2.MONITOR FOR GASTRIC RESIDUAL/ABDOMINAL DISTENTION 3.RD TO FOLLOW-UP IN 2-3 DAYS PATIENT IS HIGH RISK. KARENA WRIGHT RD
[2022-01-25 16:00] VITALS: BP 126/54
[2022-01-25] MEDS: ALBUTEROL SULFATE/IPRATROPIU 3 ML SOL IH SCH (19:30)
--- NOTE | 2022-01-25 19:30 | NUR ---
RECEIVED BEDSIDE REPORT FROM DAY SHIFT RN FOR CONTINUITY OF CARE. PT IS AWAKE AND APHASIC. PT IS TRACH TO VENT. SETTINGS: FIO2 24%, VT 500, RT 14, PEEP 5. PT SATING 95%. PT HAS LEFT HAND 2O GAUGE WITH 1/2 NS 80 CC/HR. PT HAS FC DRAINING CLEAR YELLOW URINE. RECTAL TUBE IN PLACE. PT HAS SEVERAL WOUNDS ON RIGHT CALF, LEFT GUEVARA, LEFT ANGLE, SACRAL. PT IS ON FEEDING GLUCERNA 40 CC WITH WATER FLUSH 500 Q6H. BED AT THE LOWEST POSITION. HEAD OF BED RAISED. WILL CONTINUE TO MONITOR THE PT.
--- NOTE | 2022-01-25 19:47 | NUR ---
1930 inline hhntx given by rt
[2022-01-25 20:00] VITALS: BP 98/55
--- NOTE | 2022-01-25 20:36 | NUR ---
SCHEDULE MEDS GIVEN. NO ADVERSE REACTION NOTED. WILL CONTINUE TO MONITOR THE PT.
[2022-01-26] VITALS (7 sets, daily range): BP systolic 102–129; BP diastolic 59–76
[2022-01-26] MEDS: PIPERACILLIN/TAZOBACTAM 3.375 GM in DEXTROSE 5% 50 ML IV SCH ×4 (00:08→17:49)
--- NOTE | 2022-01-26 00:13 | NUR ---
SCHEDULE MEDS GIVEN. NO ADVERSE REACTION NOTED. WILL CONTINUE TO MONITOR THE PT.
--- NOTE | 2022-01-26 01:10 | NUR ---
HHNTX GIVEN INLINE
[2022-01-26] MEDS ORDERED: POTASSIUM CHLORIDE 20% 40 MEQ/15 ML UDC GT SCH (01:40)
[2022-01-26] MEDS: THERAHONEY GEL 42.5 GM TP SCH ×2 (01:42→12:07)
[2022-01-26] MEDS: HYDRAGUARD CREAM TP SCH ×2 (01:42→12:07)
[2022-01-26] MEDS: NACL 0.45% 1,000 ML IV SCH ×2 (02:16→14:16)
--- NOTE | 2022-01-26 05:06 | NUR ---
SCHEDULE MEDS GIVEN. NO ADVERSE REACTION NOTED. WILL CONTINUE TO MONITOR THE PT.
--- NOTE | 2022-01-26 05:25 | NUR ---
PT WAS CLEANED AND CHANGED. PT TOLERATED IT WILL. WILL CONTINUE TO MONITOR THE PT.
[2022-01-26 05:43] LABS: ALBUMIN 1.7 g/dL (3.4-5.0); CARBON DIOXIDE 26.8 mmol/L (21-32); CREATININE 1.2 mg/dL (0.6-1.3); POTASSIUM 3.8 mmol/L (3.5-5.1); TOTAL BILIRUBIN 0.2 mg/dL (0.0-1.0)
[2022-01-26 07:16] LABS: EOSINOPHILS # (AUTO) 0.5 K/uL (0-0.4); MEAN CORPUSCULAR HGB CONC 32 g/dL (33-37); MONOCYTES # (AUTO) 0.6 K/uL (0.8-1.0); NEUTROPHILS # (AUTO) 8.5 K/uL (1.8-7.7); WHITE BLOOD COUNT (AUTO) 11.9 K/uL (4.8-10.8)
[2022-01-26 07:30] LABS: BASOPHILS % (AUTO) 0.4 % (0.0-2.0); EOSINOPHILS % (AUTO) 4.4 % (0.0-4.0); LYMPHOCYTES # (AUTO) 2.3 K/uL (2.0-11.5); LYMPHOCYTES % (AUTO) 19.1 % (20.5-51.1); MEAN CORPUSCULAR HEMOGLOBIN 30 pg (27-31); MEAN CORPUSCULAR VOLUME 94.6 fL (80-94); MONOCYTES % (AUTO) 5.3 % (1.7-9.3); NEUTROPHILS % (AUTO) 70.8 % (42.2-75.2); PLATELET COUNT (AUTO) 392 K/uL (140-450); RED BLOOD CELL COUNT(AUTO) 2.33 MIL/uL (4.20-6.10); RED CELL DISTRIBUTION WIDTH 15.8 % (11.6-13.7)
--- NOTE | 2022-01-26 07:32 | NUR ---
RECEIVED CIVIL ENGINEER IN TRAINING NURSE FOR CONTINUITY OF CARE. PT IS AWAKE AND APHASIC. PT IS TRACH TO VENT. SETTINGS:A/C VC FIO2 24%, VT 500, RT 14, PEEP 5. PT SATURATING AT 97%.HAS LH IV 20 GAUGE INFUSING FLUIDS WELL. PT HAS FC DRAINING CLEAR YELLOW URINE. RECTAL TUBE IN PLACE. PT HAS SEVERAL WOUNDS ON RIGHT CALF, LEFT GUEVARA, LEFT ANKLE, SACRAL. PT IS ON FEEDING AND TOLERATING WELL. NO RESIDUAL NOTED. FLACC IS 0. PLAN OF CARE DISCUSSED. SAFETY PRECAUTIONS IN PLACE. BED AT THE LOWEST POSITION. WILL CONTINUE TO MONITOR.
[2022-01-26] MEDS: ALBUTEROL SULFATE/IPRATROPIU 3 ML SOL IH SCH ×2 (07:34→13:10)
--- NOTE | 2022-01-26 07:35 | NUR ---
ENDORSED PT TO DAY SHIFT RN FOR CONTINUITY OF CARE. PT IS STABLE.
--- NOTE | 2022-01-26 07:35 | NUR ---
RECEIVED ON A BigRepSCAPE R860 VENTILATOR PLUGGED INTO RED OUTLET TOLERATING WELL WITHOUT ADVERSE REACTIONS NOTED TO A PORTEX DFEN #8 AIRWAY SECURED WITH A ZOEY TRACH TIE CUFF PRESSURE CHECKED NOTED AMBU BAG AT BEDSIDE STABLE NO PULMONARY DISTRESS NOTED GOOD CHEST RISE DEEP TRACHEAL USCTION FOR SMALL THIN YELLOW SECRETIONS AIRWAY PATENT
[2022-01-26] MEDS: CHLORHEXADINE GLUC 2% CLOTH TP SCH (09:05)
[2022-01-26] MEDS: MUPIROCIN CA NASAL 2% 1GM TUBE NS SCH (09:05)
--- NOTE | 2022-01-26 09:10 | NUR ---
ALL SCHEDULED MEDS GIVEN. PT IS STABLE. NO DISTRESS NOTED. WILL CONTINUE TO MONITOR.
--- NOTE | 2022-01-26 10:05 | NUR ---
STABLE RESTING WELL EQUAL CHEST RISE GOOD AERATION THROUGHOUT BILATERAL LUNG HICKEY AIRWAY PATENT
--- NOTE | 2022-01-26 12:10 | NUR ---
ALL SCHEDULED MEDS GIVEN. PT IS STABLE. NO DISTRESS NOTED. WILL CONTINUE TO MONITOR.
--- NOTE | 2022-01-26 16:05 | NUR ---
CHECKED ON PATIENT. PT IS STABLE. NO DISTRESS NOTED. WILL CONTINUE TO MONITOR.
--- NOTE | 2022-01-26 19:40 | NUR ---
ENDORSED TO PENSION EXAMINER NURSE FOR CONTINUITY OF CARE. PT IS STABLE.
[2022-01-27] VITALS: BP 108/60
[2022-01-27] MEDS: PIPERACILLIN/TAZOBACTAM 3.375 GM in DEXTROSE 5% 50 ML IV SCH ×5 (00:38→23:15)
[2022-01-27] MEDS: THERAHONEY GEL 42.5 GM TP SCH ×2 (01:00→13:04)
[2022-01-27] MEDS: HYDRAGUARD CREAM TP SCH ×2 (01:00→13:04)
[2022-01-27 04:00] VITALS: BP 104/55
[2022-01-27 05:30] LABS: BASOPHILS % (AUTO) 0.3 % (0.0-2.0); EOSINOPHILS # (AUTO) 0.5 K/uL (0-0.4); EOSINOPHILS % (AUTO) 3.2 % (0.0-4.0); HEMATOCRIT 23.7 % (36-52); HEMOGLOBIN 7.4 g/dL (12.0-18.0); LYMPHOCYTES # (AUTO) 2.5 K/uL (2.0-11.5); LYMPHOCYTES % (AUTO) 17.4 % (20.5-51.1); MEAN CORPUSCULAR HEMOGLOBIN 30 pg (27-31); MEAN CORPUSCULAR HGB CONC 31 g/dL (33-37); MEAN CORPUSCULAR VOLUME 94.4 fL (80-94); MONOCYTES # (AUTO) 0.6 K/uL (0.8-1.0); MONOCYTES % (AUTO) 4.6 % (1.7-9.3); NEUTROPHILS # (AUTO) 10.6 K/uL (1.8-7.7); NEUTROPHILS % (AUTO) 74.5 % (42.2-75.2); PLATELET COUNT (AUTO) 443 K/uL (140-450); RED BLOOD CELL COUNT(AUTO) 2.51 MIL/uL (4.20-6.10); RED CELL DISTRIBUTION WIDTH 16.1 % (11.6-13.7); WHITE BLOOD COUNT (AUTO) 14.2 K/uL (4.8-10.8)
[2022-01-27 06:02] LABS: ALBUMIN 1.9 g/dL (3.4-5.0); ANION GAP 14.1 (8-16); CARBON DIOXIDE 26.2 mmol/L (21-32); POTASSIUM 4.3 mmol/L (3.5-5.1); TOTAL BILIRUBIN 0.4 mg/dL (0.0-1.0)
[2022-01-27] MEDS: ALBUTEROL SULFATE/IPRATROPIU 3 ML SOL IH SCH ×3 (07:00→20:26)
--- NOTE | 2022-01-27 07:30 | NUR ---
[facility] PT APHASIC. TRACH TO VENT WITH FIO2 @ 24%, TV 500, R14, PEEP 5. O2 SATURATION @ 99%. HOB ELEVATED. HAWTHORNE VIA GRAVITY. IVPB INFUSING ON L HAND #20. FEEDING PUMP NOT INFUSING. 0 ML RESIDUAL VIA GTUBE. WATER REFILLED AND FEEDING CONTINUED @ 50 ML/HR WITH 300 WATER FLUSH Q.4H. NEEDS MET. ALL SAFETY MEASURES IN PLACE.
[2022-01-27 08:00] VITALS: BP 136/84
[2022-01-27] MEDS: NACL 0.45% 1,000 ML IV SCH (09:20)
[2022-01-27] MEDS: MUPIROCIN CA NASAL 2% 1GM TUBE NS SCH (09:20)
[2022-01-27] MEDS: CHLORHEXADINE GLUC 2% CLOTH TP SCH (09:20)
--- NOTE | 2022-01-27 10:30 | NUR ---
PT WITH BOWEL MOVEMENT WITH RECTAL TUBE NOT CONNECTED TO RECTUM WITH BALLOON INTACT. 30 ML FLUID TAKEN OUT FROM RECTAL TUBE BALLOON. ATTEMPT X2 FOR RECTAL TUBE INSERTED 6 INCHES WITH 40 ML NS INFLATED IN RECTAL BALLOON. PT PASSED BOWEL MOVEMENT ALONG WITH RECTAL TUBE AND RECTAL TUBE BALLOON. BOWEL MOVEMENT LOOSE, AND BROWN. INTENSIVE CARE UNIT REGISTERED NURSE STATES RECTAL TUBE WAS UNSUCCESSFUL YESTERDAY. WILL CONTACT MD. SACRAL DRESSING CHANGED AND HYGIENIC CARE PERFORMED WITH FIO2 @ 100% DURING THE CHANGE. HOB ELEVATED. O2 SATURATION @ 99%. IVF INFUSING. HAWTHORNE VIA GRAVITY. NEEDS ALL MET AT THIS TIME. ALL SAFETY MEASURES IN PLACE.
[2022-01-27 12:00] VITALS: BP 118/73
--- NOTE | 2022-01-27 13:40 | NUR ---
IVF DISCONTINUED PER MD ORDER.
--- NOTE | 2022-01-27 14:10 | NUR ---
RT NOTES PT DID NOT RECEIVE BREATHING TX TODAY 0700 OR 1300 DUE TO RT WAS UNAVAILABLE. PT WAS CHECKED ON DURING ROUNDS NO DISTRESS WAS NOTED. PT WAS SLEEPING.
--- NOTE | 2022-01-27 15:34 | NUR ---
RECEIVED REPORT FROM [facility] NURSE. PT APHASIC. TRACH TO VENT WITH FIO2 @ 24%, TV 500, R14, PEEP 5. O2 SATURATION @ 99%. HOB ALISTAIR. MARINE VIA GRAVITY. IVPB INFUSING ON L HAND #20. FEEDING PUMP NOT INFUSING. 0 ML RESIDUAL VIA GTUBE. WATER REFILLED AND FEEDING CONTINUED @ 50 ML/HR WITH 300 WATER FLUSH Q.4H. NEEDS MET. ALL SAFETY MEASURES IN PLACE. Addendum: 01/27/22 at 1539 by Agency JACINDA MONACO WRONG TIME
--- NOTE | 2022-01-27 15:35 | NUR ---
DC PLANNING SW ATTEMPTED TO REACH PATIENTS EMERGENCY CONTACTS ON FILE HOWEVER, UNSUCCESSFUL. SW OUTREACHED TO [facility] TO GATHER COLLATERAL INFORMATION, SPOKE WITH FACILITY CLARE KLAUDIA WHO REPORTS PATIENT HAS BEEN IN RESIDENTIAL CARE SINCE NOVEMBER 11, PATIENT IS TRAYC/VENT AND IS TOTAL CARE. KLAUDIA REPORTS THAT PT'S MOTHER IS ACTIVE IN PATIENTS CARE. KLAUDIA UNABLE TO PROVIDE FURTHER DETAILS. SW TO CONTINUE EFFORTS IN REACHING EMERGENCY CONTACTS TO GATHER ADDITIONAL COLLATERAL INFORMATION. Addendum: 02/01/22 at 1540 by Saira CAN FAXED OVER REFERRAL PACKET TO [facility]. RETAINED AUTH FROM [facility] FOR [facility] ([id number]) AND TRANSPORTATION AUTH ([id number]). AFSHAN [facility] ADMIN PROVIDED PATIENT ROOM NUMBER [id number]. SET UP TRANSPORTATION WITH [facility] AND SPOKE W/ KENYA, PROVIDED [facility] WITH [facility] TRANSPORTATION AUTH. 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 ENDORSED TO PATIENT NURSE AND BARBI ESTEVES WITH [facility] # [phone] FOR REPORT.
[2022-01-27 16:00] VITALS: BP 100/59
--- NOTE | 2022-01-27 16:30 | NUR ---
MD CONTACTED REGARDING RECTAL TUBE. MD ORDER TO LEAVE RECTAL TUBE OUT.
--- NOTE | 2022-01-27 19:09 | NUR ---
REPORT GIVEN TO NIGHTSHIFT NURSEADAM. MELVA AGUILAR.
--- NOTE | 2022-01-27 19:15 | NUR ---
RECEIVED PATIENT IN BED ASLEEP. NO S/SX OF PAIN NOR DISCOMFORT. TRACH TO VENT WITH SETTING ORDERED. SKIN WARM AND DRY TO TOUCH. G-TUBE FEEDING TOLERATED WELL, NO RESIDUAL NOTED, PLACEMENT VERIFIED VIA AUSCULTATION, HEAD OF THE BED ELEVATED FOR ASPIRATION PRECAUTION. HAWTHORNE CATHETER IN PLACE, DRAINING YELLOW URINE BY GRAVITY. ON CONTACT ISOLATION. CALL LIGHT IN REACH.
[2022-01-27 20:00] VITALS: BP 107/65
--- NOTE | 2022-01-27 20:30 | NUR ---
PATIENT DECREASE O2 TO 10L, TOLERATING WELL, NO RESPIRATORY DISTRESS NOTED. SATURATION AT 97%.
[2022-01-28] VITALS: BP 102/69
[2022-01-28] MEDS: THERAHONEY GEL 42.5 GM TP SCH ×2 (00:05→13:19)
[2022-01-28] MEDS: HYDRAGUARD CREAM TP SCH ×2 (00:05→13:19)
--- NOTE | 2022-01-28 00:05 | NUR ---
ORAL CARE DONE, NO RESIDUAL FROM G-TUBE, HEAD OF THE BED ELEVATED. REPOSITIONED PATIENT. CALL LIGHT IN REACH.
[2022-01-28] MEDS: ALBUTEROL SULFATE/IPRATROPIU 3 ML SOL IH SCH ×4 (01:10→19:23)
--- NOTE | 2022-01-28 02:00 | NUR ---
ORAL AND TRACH SUCTIONING DONE, NOTED SMALL AMOUNT OF THIN WHITISH SECRETION, ORAL CARE DONE.
[2022-01-28 04:00] VITALS: BP 108/59
--- NOTE | 2022-01-28 04:00 | NUR ---
PATIENT IS ASLEEP. NO S/SX OF ACUTE RESPIRATORY DISTRESS NOTED.
[2022-01-28] MEDS: PIPERACILLIN/TAZOBACTAM 3.375 GM in DEXTROSE 5% 50 ML IV SCH ×3 (05:12→17:16)
--- NOTE | 2022-01-28 05:36 | NUR ---
AM CARE RENDERED. MADE COMFORTABLE IN BED.
--- NOTE | 2022-01-28 06:22 | NUR ---
ALL NEEDS ATTENDED TO.NO DISTRESS NOTED. NO RESIDUAL FROM G-TUBE. SAFETY PRECAUTIONS MAINTAINED DURING THE SHIFT. CALL LIGHT REMAINED WITHIN REACH.
[2022-01-28 06:23] LABS: BASOPHILS # (AUTO) 0.1 K/uL (0.00-0.22); BASOPHILS % (AUTO) 0.4 % (0.0-2.0); EOSINOPHILS # (AUTO) 0.5 K/uL (0-0.4); EOSINOPHILS % (AUTO) 2.9 % (0.0-4.0); HEMATOCRIT 24.1 % (36-52); HEMOGLOBIN 7.5 g/dL (12.0-18.0); LYMPHOCYTES # (AUTO) 2.5 K/uL (2.0-11.5); LYMPHOCYTES % (AUTO) 15.6 % (20.5-51.1); MEAN CORPUSCULAR HEMOGLOBIN 29 pg (27-31); MEAN CORPUSCULAR HGB CONC 31 g/dL (33-37); MEAN CORPUSCULAR VOLUME 94.2 fL (80-94); MONOCYTES # (AUTO) 0.8 K/uL (0.8-1.0); MONOCYTES % (AUTO) 5.1 % (1.7-9.3); NEUTROPHILS # (AUTO) 12.1 K/uL (1.8-7.7); PLATELET COUNT (AUTO) 484 K/uL (140-450); RED BLOOD CELL COUNT(AUTO) 2.55 MIL/uL (4.20-6.10); RED CELL DISTRIBUTION WIDTH 16.2 % (11.6-13.7); WHITE BLOOD COUNT (AUTO) 15.9 K/uL (4.8-10.8)
--- NOTE | 2022-01-28 06:50 | NUR ---
RECEIVED PT ON AC 500,RR14,PEEP5, 24% FIO2, VENT LOCKED AND PLUGGED INTO RED OUTLET, AMBUBAG AT BEDSIDE, ALARMS ARE SET AND AUDIBLE. PORTEX 8. CHANGED TRACH DRESSING AND COARSE BILATERALLY. SUCTIONED MOD AMOUNT THICK SPUTUM. WILL CONTINUE TO MONITOR.
[2022-01-28 06:58] LABS: ALBUMIN 1.8 g/dL (3.4-5.0); ANION GAP 9.5 (8-16); CARBON DIOXIDE 29.9 mmol/L (21-32); POTASSIUM 4.4 mmol/L (3.5-5.1); TOTAL BILIRUBIN 0.4 mg/dL (0.0-1.0)
--- NOTE | 2022-01-28 07:21 | NUR ---
ENDORSED TO AM RN FOR CONTINUITY OF CARE.
--- NOTE | 2022-01-28 07:35 | NUR ---
Received pt awake and aphasic, trach to vent. Sinus rhythm on monitor. G-tube intact and infusing Glucerna 1.2@50ml/hr with free water flush 300 Q4H. Perez catheter intact and draining to bed side drainage. Peripheral IV 20 gauge on left hand intact and on saline lock. 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 Safety precautions in place.
[2022-01-28 08:00] VITALS: BP 140/82
[2022-01-28] MEDS: MUPIROCIN CA NASAL 2% 1GM TUBE NS SCH (08:12)
[2022-01-28] MEDS: CHLORHEXADINE GLUC 2% CLOTH TP SCH (08:12)
[2022-01-28] MEDS ORDERED: VANCOMYCIN PER PHARMACY MC PRN (08:40)
--- NOTE | 2022-01-28 09:13 | NUR ---
Seen and examined by Dr. Prince. New orders received.
[2022-01-28] MEDS: VANCOMYCIN 750 MG in DEXTROSE 5% 250 ML IV SCH ×2 (10:05→21:36)
[2022-01-28] MEDS ORDERED: AMIKACIN PER PHARMACY MC PRN (10:50)
[2022-01-28] MEDS: AMIKACIN 400 MG in DEXTROSE 5% 100 ML IV SCH (11:46)
[2022-01-28 12:00] VITALS: BP 109/53
--- NOTE | 2022-01-28 14:20 | NUR ---
Seen and examined by Dr. Javier.
--- NOTE | 2022-01-28 14:36 | NUR ---
01/28/22 RD FOLLOW UP COMPLETED PLEASE REFER TO NUTRITION ASSESSMENT UNDER CARE ACTIVITY FOR ESTIMATED NUTRITIONAL NEEDS. 1. CONTINUE WITH GLUCERNA 1.2 @50ML/HR; FWF 300 ML Q4H AND PROSOURCE BID TOLERATED. - MONITOR FOR GASTRIC RESIDUAL. 2. RD TO FOLLOW-UP 3-5 DAYS, MODERATE RISK REVIEWED BY BASIL NASH RD
[2022-01-28 16:00] VITALS: BP 108/59
--- NOTE | 2022-01-28 19:35 | NUR ---
RECEIVED PATIENT FROM DAY SHIFT NURSE WITH EYES CLOSE. PATIENT IS TRACH TO VENT, SETTING AC: TV-500 R-14 PEEP-5 FIO2- 24%. BREATHING NORMAL WITH SYMMETRICAL RISE AND FALL OF THE CHEST. NO S/S OF RESPIRATORY DISTRESS. ALL SAFETY PRECAUTIONS ARE IN PLACE. TUBE FEEDING OF GLUCERNA 1.2 RUNNING AT 50 MLS/HR . HAWTHORNE CATHETER DRAINING WELL. IV SITE ON THE LEFT HAND TKO. WILL CONTINUE TO MONITOR.
[2022-01-28 20:00] VITALS: BP 100/43
--- NOTE | 2022-01-28 21:36 | NUR ---
DUE MEDICATION GIVEN ORDERED.
[2022-01-29] VITALS: BP 103/51
[2022-01-29] MEDS: PIPERACILLIN/TAZOBACTAM 3.375 GM in DEXTROSE 5% 50 ML IV SCH ×4 (00:03→18:53)
--- NOTE | 2022-01-29 00:03 | NUR ---
SCHEDULED MEDICATIONS ADMINISTERED PER MD ORDER.
[2022-01-29] MEDS: ALBUTEROL SULFATE/IPRATROPIU 3 ML SOL IH SCH ×4 (00:16→19:39)
[2022-01-29] MEDS: AMIKACIN 400 MG in DEXTROSE 5% 100 ML IV SCH ×3 (00:54→23:01)
[2022-01-29] MEDS: THERAHONEY GEL 42.5 GM TP SCH ×2 (01:15→13:23)
[2022-01-29] MEDS: HYDRAGUARD CREAM TP SCH ×2 (01:15→13:22)
--- NOTE | 2022-01-29 02:00 | NUR ---
TURNED AND REPOSITIONED PATIENT
--- NOTE | 2022-01-29 03:15 | NUR ---
PATIENT SLEEPING WITH SYMMETRICAL RISE AND FALL OF THE CHEST. SAFETY MEASURES IN PLACE.
[2022-01-29 04:00] VITALS: BP 105/50
[2022-01-29 06:45] LABS: ANION GAP 12.6 (8-16); CARBON DIOXIDE 26.8 mmol/L (21-32); CREATININE 1.1 mg/dL (0.6-1.3); POTASSIUM 4.4 mmol/L (3.5-5.1)
--- NOTE | 2022-01-29 07:00 | NUR ---
PT RECEIVED FROM [facility] RT, PT ON VENT SETTINGS; AC/VC VOLUME OF 500, RATE OF 14, PEEP OF 5, ON 24%. VENT AND BED WHEELS ARE LOCKED AND AMBU BAG AT BEDSIDE, VENT IS PLUGGED INTO RED OUTLET AND PT SEEN IN NO RESPIRATORY DISTRESS, PT TOLERATED TX AND WE POSITIONED THE PT IN SEMIFOWLERS POSITION. WILL CONTINUE TO MONITOR PT.
--- NOTE | 2022-01-29 07:01 | NUR ---
PT IS NOT IN ANY RESPIRATORY DISTRESS, PT VENT ALARMS ARE SET AND AUDIBLE, VENT PLUGGED INTO RED OUTLET, WHEELS ARE LOCKED , AMBU BAG AT BEDSIDE. PT HAS A SIZE 8 PORTEX.
--- NOTE | 2022-01-29 07:26 | NUR ---
RECEIVED REPORT FROM NIGHTSHIFT NURSE FABIENNE FOR CONTINUITY OF CARE. PT IN STABLE CONDITION. PT CURRENTLY SLEEPING, AROUSED TO NAME AND SHAKING, BUT DOES NOT TRACK WITH EYES. PT IS TRACH TO VENT, VENT SETTINGS FOLLOWS: MODE A/C VC; FIO2 24%; VT 500; RATE 14/MIN; PEEP 5; PMAX 40; SPO2 100%. PT IS INCONTINENT OF THE BOWEL AND BLADDER, WITH HAWTHORNE IN PLACE. DRESSINGS ON SACRUM AND BILAT LE INTACT. NO SIGNS OF DISTRESS NOTED AT THIS TIME. RT AT THE BEDSIDE PERFORMING TRACH CARE.
--- NOTE | 2022-01-29 07:26 | NUR ---
PATIENT STABLE. BEDSIDE REPORT GIVEN TO MORNING SHIFT NURSE FOR CONTINUITY OF CARE.
[2022-01-29] MEDS: MUPIROCIN CA NASAL 2% 1GM TUBE NS SCH (09:00)
[2022-01-29] MEDS: CHLORHEXADINE GLUC 2% CLOTH TP SCH (09:00)
[2022-01-29 09:16] LABS: BASOPHILS % (AUTO) 0.3 % (0.0-2.0); EOSINOPHILS # (AUTO) 0.4 K/uL (0-0.4); EOSINOPHILS % (AUTO) 2.7 % (0.0-4.0); HEMATOCRIT 24.6 % (36-52); HEMOGLOBIN 7.8 g/dL (12.0-18.0); LYMPHOCYTES # (AUTO) 2.4 K/uL (2.0-11.5); LYMPHOCYTES % (AUTO) 14.6 % (20.5-51.1); MEAN CORPUSCULAR HEMOGLOBIN 30 pg (27-31); MEAN CORPUSCULAR HGB CONC 32 g/dL (33-37); MEAN CORPUSCULAR VOLUME 94.1 fL (80-94); MONOCYTES # (AUTO) 0.8 K/uL (0.8-1.0); MONOCYTES % (AUTO) 5.1 % (1.7-9.3); NEUTROPHILS # (AUTO) 12.8 K/uL (1.8-7.7); NEUTROPHILS % (AUTO) 77.3 % (42.2-75.2); PLATELET COUNT (AUTO) 489 K/uL (140-450); RED BLOOD CELL COUNT(AUTO) 2.61 MIL/uL (4.20-6.10); RED CELL DISTRIBUTION WIDTH 16.1 % (11.6-13.7); WHITE BLOOD COUNT (AUTO) 16.6 K/uL (4.8-10.8)
--- NOTE | 2022-01-29 09:40 | NUR ---
PT VISUALLY ASSESSED, LESS THAN 10ML RESIDUAL NOTED. NO SIGNS OF PAIN OR DISTRESS NOTED AT THIS TIME.
[2022-01-29] MEDS: VANCOMYCIN 750 MG in DEXTROSE 5% 250 ML IV SCH (09:53)
[2022-01-29 09:56] LABS: ALBUMIN 1.7 g/dL (3.4-5.0); ANION GAP 13.5 (8-16); CARBON DIOXIDE 25.9 mmol/L (21-32); CREATININE 0.9 mg/dL (0.6-1.3); POTASSIUM 4.4 mmol/L (3.5-5.1); TOTAL BILIRUBIN 0.3 mg/dL (0.0-1.0)
--- NOTE | 2022-01-29 11:00 | NUR ---
PERFORMED BED BATH, LINEN CHANGE AND WOUND CARE. PT HAD MODERATE SIZE SOLID BM, STOOL BROWN, SOFT AND FORMED. MILD/MOD PURULENT AND SEROSANGUINEOUS DRAINAGE NOTED ON SACRAL DRESSING. MILD PURULENT DRAINAGE NOTED ON PI ON RIGHT LOWER EXTREMITY.
[2022-01-29 12:00] VITALS: BP 123/70
--- NOTE | 2022-01-29 13:00 | NUR ---
PT VISUALLY ASSESSED, NO SIGNS OF PAIN OR DISTRESS NOTED. PERFORMED ORAL CARE.
--- NOTE | 2022-01-29 15:00 | NUR ---
PT VISUALLY ASSESSED, NO SIGNS OF PAIN OR DISTRESS NOTED.
[2022-01-29 16:00] VITALS: BP 122/72
--- NOTE | 2022-01-29 17:20 | NUR ---
AFTER TRACH CARE COMPLETED, ORAL CARE COMPLETED, CHANGED INNER CANNULA, HME AND GAUZE, STOMA STILL DRAINING AND PT TOLERATED CHANGE WELL, PT SATING 99% AND NOT IN ANY RESPIRATORY DISTRESS.
--- NOTE | 2022-01-29 18:50 | NUR ---
ORAL CARE COMPLETED, PT FLACC 0. NO SIGNS OF PAIN OR DISTRESS NOTED. NO RESIDUAL.
--- NOTE | 2022-01-29 19:07 | NUR ---
ENDORSED PT TO NIGHTSHIFT NURSE MEDINA FOR CONTINUITY OF CARE. PT IN STABLE CONDITION.
--- NOTE | 2022-01-29 19:10 | NUR ---
RECEIVED PATIENT IN BED, ASLEEP. NO S/SX OF PAIN NOR DISCOMFORT. TRACH TO VENT WITH SETTING ORDERED SAT 97%, NO ACUTE RESPIRATORY DISTRESS NOTED. G-TUBE FEEDING TOLERATED WELL, NO RESIDUAL, PLACEMENT VERIFIED VIA AUSCULTATION, HEAD OF THE BED ELEVATED. HAWTHORNE CATHETER DRAINING YELLOW URINE BY GRAVITY. SKIN WARM AND DRY TO TOUCH. BED IN THE LOWEST AND LOCKED POSITION, CALL LIGHT IN REACH. ON CONTACT ISOLATION.
[2022-01-29 20:00] VITALS: BP 115/53
--- NOTE | 2022-01-29 22:00 | NUR ---
PULLED UP AND REPOSITIONED FOR COMFORT. HEAD OF THE BED ELEVATED.
[2022-01-30] VITALS: BP 101/52
--- NOTE | 2022-01-30 00:03 | NUR ---
DR. LEIJA CALLED, UPDATED ON PT'S CONDITION. NO NEW ORDER GIVEN. PATIENT IS ASLEEP. NO RESIDUAL FROM G-TUBE, HEAD ELEVATED FOR ASPIRATION PRECAUTION.
[2022-01-30] MEDS: PIPERACILLIN/TAZOBACTAM 3.375 GM in DEXTROSE 5% 50 ML IV SCH ×4 (00:12→18:15)
[2022-01-30] MEDS: HYDRAGUARD CREAM TP SCH ×2 (00:12→13:00)
[2022-01-30] MEDS: THERAHONEY GEL 42.5 GM TP SCH ×2 (00:12→13:00)
[2022-01-30] MEDS: ALBUTEROL SULFATE/IPRATROPIU 3 ML SOL IH SCH ×4 (01:28→19:47)
--- NOTE | 2022-01-30 02:00 | NUR ---
REPOSITIONED PATIENT. TRACH AND ORAL SUCTIONING DONE, ORAL CARE RENDERED. HEAD OF THE BED ELEVATED.
[2022-01-30 04:00] VITALS: BP 120/66
--- NOTE | 2022-01-30 04:00 | NUR ---
PULLED UP IN BED AND REPOSITIONED FOR COMFORT. NO RESIDUAL FROM G TUBE, HEAD OF THE BED ELEVATED.
[2022-01-30 06:21] LABS: BASOPHILS % (AUTO) 0.2 % (0.0-2.0); EOSINOPHILS # (AUTO) 0.5 K/uL (0-0.4); EOSINOPHILS % (AUTO) 3.5 % (0.0-4.0); HEMATOCRIT 25.2 % (36-52); LYMPHOCYTES # (AUTO) 1.9 K/uL (2.0-11.5); LYMPHOCYTES % (AUTO) 13.7 % (20.5-51.1); MEAN CORPUSCULAR HEMOGLOBIN 30 pg (27-31); MEAN CORPUSCULAR HGB CONC 32 g/dL (33-37); MEAN CORPUSCULAR VOLUME 93.1 fL (80-94); MONOCYTES # (AUTO) 0.7 K/uL (0.8-1.0); MONOCYTES % (AUTO) 5.3 % (1.7-9.3); NEUTROPHILS # (AUTO) 10.5 K/uL (1.8-7.7); NEUTROPHILS % (AUTO) 77.3 % (42.2-75.2); PLATELET COUNT (AUTO) 553 K/uL (140-450); RED BLOOD CELL COUNT(AUTO) 2.71 MIL/uL (4.20-6.10); RED CELL DISTRIBUTION WIDTH 16.3 % (11.6-13.7); WHITE BLOOD COUNT (AUTO) 13.6 K/uL (4.8-10.8)
--- NOTE | 2022-01-30 06:23 | NUR ---
PATIENT ASLEEP. ALL NEEDS ATTENDED TO. NO RESPIRATORY DISTRESS NOTED. NO RESIDUAL FROM G-TUBE. SAFETY PRECAUTIONS MAINTAINED DURING THE SHIFT, CALL LIGHT REMAINED WITHIN REACH.
[2022-01-30 07:10] LABS: ALBUMIN 1.8 g/dL (3.4-5.0); ANION GAP 12.3 (8-16); CARBON DIOXIDE 25.8 mmol/L (21-32); POTASSIUM 4.1 mmol/L (3.5-5.1); TOTAL BILIRUBIN 0.3 mg/dL (0.0-1.0)
--- NOTE | 2022-01-30 07:12 | NUR ---
RECEIVED ON A Red KaraokeSCAPE R860 VENTILATOR PLUGGED INTO RED OUTLET TOLERATING WELL WITHOUT ADVERSE REACTIONS NOTED TO A PORTEX DFEN #8 AIRWAY SECURED WITH A ZOEY TRACH TIE CUFF PRESSURE CHECKED NOTED AMBU BAG AT BEDSIDE STABLE RESTING WELL GOOD CHEST RISE DEEP TRACHEAL SUCTION FOR MODERATE THICK YELLOW SECRETIONS AIRWAY PATENT
--- NOTE | 2022-01-30 07:25 | NUR ---
REPORT GIVEN TO AM RN FOR CONTINUITY OF CARE.
[2022-01-30 08:00] VITALS: BP 118/70
[2022-01-30] MEDS: VANCOMYCIN 1,000 MG in DEXTROSE 5% 250 ML IV SCH (09:00)
--- NOTE | 2022-01-30 10:58 | NUR ---
STABLE NO DISTRESS NOTED GOOD CHEST RISE DEEP TRACHEAL SUCTION FOR SMALL THICK YELLOW SECRETIONS AIRWAY PATENT
[2022-01-30 12:00] VITALS: BP 97/57
[2022-01-30] MEDS: AMIKACIN 400 MG in DEXTROSE 5% 100 ML IV SCH ×2 (12:00→23:10)
--- NOTE | 2022-01-30 14:00 | NUR ---
STABLE RESTING WELL GOOD CHEST RISE DEEP TRACHEAL SUCTION FOR SMALL SEMI THICK YELLOW SECRETIONS AIRWAY PATENT
--- NOTE | 2022-01-30 14:20 | NUR ---
SCHEDULED MEDICATIONS DUE GIVEN. WILL CONTINUE TO MONITOR.
[2022-01-30 16:00] VITALS: BP 122/74
--- NOTE | 2022-01-30 19:35 | NUR ---
GAVE REPORT TO GRINDER MACHINE KNIFE SETTER NURSE FOR CONTINUITY OF CARE. PATIENT IN STABLE. CONDITION.
[2022-01-30 20:00] VITALS: BP 107/68
[2022-01-30] MEDS: FAMOTIDINE 20 MG TAB GT SCH (20:30)
[2022-01-31] VITALS: BP 94/63
--- NOTE | 2022-01-31 | NUR ---
VITAL SIGNS TAKEN AND DOCUMENTED. REPOSITIONED FOR COMFORT. NO RESIDUAL FROM G-TUBE, HEAD OF THE BED ELEVATED.
[2022-01-31] MEDS: PIPERACILLIN/TAZOBACTAM 3.375 GM in DEXTROSE 5% 50 ML IV SCH ×3 (00:14→12:33)
[2022-01-31] MEDS: ALBUTEROL SULFATE/IPRATROPIU 3 ML SOL IH SCH ×4 (00:17→19:42)
[2022-01-31] MEDS: HYDRAGUARD CREAM TP SCH ×2 (00:20→13:42)
[2022-01-31] MEDS: THERAHONEY GEL 42.5 GM TP SCH ×2 (00:20→13:43)
[2022-01-31] MEDS: VANCOMYCIN 1,000 MG in DEXTROSE 5% 250 ML IV SCH ×2 (02:00→22:21)
--- NOTE | 2022-01-31 02:00 | NUR ---
PATIENT HAD A MODERATE AMOUNT OF SOFT BROWN STOOL, AM CARE RENDERED. TRACH AND SUCTIONING DONE, ORAL CARE DONE. G-TUBE SITE CLEANED AND CHANGED DRESSING. REPOSITIONED FOR COMFORT. HEAD OF THE BED ELEVATED.
[2022-01-31 04:00] VITALS: BP 101/54
--- NOTE | 2022-01-31 06:29 | NUR ---
PATIENT ASLEEP. NO DISTRESS NOTED. ALL NEEDS ATTENDED TO. G-TUBE FEEDING TOLERATED WELL, NO RESIDUAL NOTED, HEAD OF THE BED ELEVATED. SAFETY PRECAUTIONS MAINTAINED DURING THE SHIFT, CALL LIGHT REMAINED WITHIN REACH.
--- NOTE | 2022-01-31 07:14 | NUR ---
BEDSIDE REPORT GIVEN TO AM RN FOR CONTINUITY OF CARE. PATIENT IS ASLEEP. NO ACUTE RESPIRATORY DISTRESS.
[2022-01-31 08:00] VITALS: BP 119/59
--- NOTE | 2022-01-31 08:00 | NUR ---
RECEIVE ENDORSEMENT FROM PM SHIFT NURSE THAT PATIENT REST IN BED, PIV R. THUMB TKO 5ML/HR, PEG-TUBE INFUSING GLUCERNA 1.2 @50ML.HR W/ H2O FLUSHING 200 Q4HR; HAWTHORNE 16FR DRAINING; WOUND AT COCCYX (STAGE IV), ARTERIAL ULCER @ R. MALLEUS PROXIMAL TO ANKLE, L. BELOW KNEE WOUND PRESENT. WILL CONTINUE TO MONITOR
[2022-01-31] MEDS: FAMOTIDINE 20 MG TAB GT SCH ×2 (10:03→21:50)
[2022-01-31 12:00] VITALS: BP 118/67
[2022-01-31] MEDS: AMIKACIN 400 MG in DEXTROSE 5% 100 ML IV SCH (12:33)
[2022-01-31 16:00] VITALS: BP 115/70
--- NOTE | 2022-01-31 19:27 | NUR ---
ENDORSE PATIENT TO PM SHIFT NURSE THAT PATIENT REST IN BED, PIV R. THUMB TKO 5ML/HR, PEG-TUBE INFUSING GLUCERNA 1.2 @50ML.HR W/ H2O FLUSHING 200 Q4HR; HAWTHORNE 16FR DRAINING; WOUND AT COCCYX (STAGE IV), ARTERIAL ULCER @ R. MALLEUS PROXIMAL TO ANKLE, L. BELOW KNEE WOUND DRESSING CHANGED
--- NOTE | 2022-01-31 19:40 | NUR ---
RECEIVED PATIENT FROM AM NURSE FOR CONTINUITY OF CARE.PT IS STABLE
[2022-01-31 20:00] VITALS: BP 70/70
--- NOTE | 2022-01-31 21:30 | NUR ---
ALL MEDICATIONS GIVEN AT THIS TIME,NO ADVERSE REACTIONS NOTEN
[2022-01-31] MEDS ORDERED: VANCOMYCIN 1,000 MG VIAL ONE (21:57)
[2022-02-01] VITALS: BP 131/68
[2022-02-01] MEDS: AMIKACIN 400 MG in DEXTROSE 5% 100 ML IV SCH ×2 (00:10→12:58)
--- NOTE | 2022-02-01 02:00 | NUR ---
PATIENT ASLEEP,NO DISTRESS NOTED
[2022-02-01] MEDS: HYDRAGUARD CREAM TP SCH ×2 (03:14→13:53)
[2022-02-01] MEDS: THERAHONEY GEL 42.5 GM TP SCH ×2 (03:16→13:53)
[2022-02-01] MEDS: ALBUTEROL SULFATE/IPRATROPIU 3 ML SOL IH SCH ×4 (03:30→19:16)
[2022-02-01 04:00] VITALS: BP 127/68
[2022-02-01 05:36] LABS: ALBUMIN 1.9 g/dL (3.4-5.0); ANION GAP 10.7 (8-16); CARBON DIOXIDE 27.4 mmol/L (21-32); CREATININE 0.9 mg/dL (0.6-1.3); POTASSIUM 4.1 mmol/L (3.5-5.1); TOTAL BILIRUBIN 0.3 mg/dL (0.0-1.0)
[2022-02-01 06:51] LABS: BASOPHILS # (AUTO) 0.1 K/uL (0.00-0.22); BASOPHILS % (AUTO) 0.5 % (0.0-2.0); EOSINOPHILS # (AUTO) 0.5 K/uL (0-0.4); EOSINOPHILS % (AUTO) 3.9 % (0.0-4.0); HEMATOCRIT 24.1 % (36-52); LYMPHOCYTES # (AUTO) 3.3 K/uL (2.0-11.5); LYMPHOCYTES % (AUTO) 25.2 % (20.5-51.1); MEAN CORPUSCULAR HEMOGLOBIN 30 pg (27-31); MEAN CORPUSCULAR HGB CONC 32 g/dL (33-37); MEAN CORPUSCULAR VOLUME 94.7 fL (80-94); MONOCYTES # (AUTO) 0.9 K/uL (0.8-1.0); NEUTROPHILS # (AUTO) 8.2 K/uL (1.8-7.7); NEUTROPHILS % (AUTO) 63.4 % (42.2-75.2); PLATELET COUNT (AUTO) 608 K/uL (140-450); RED BLOOD CELL COUNT(AUTO) 2.54 MIL/uL (4.20-6.10); RED CELL DISTRIBUTION WIDTH 16.8 % (11.6-13.7); WHITE BLOOD COUNT (AUTO) 12.9 K/uL (4.8-10.8)
[2022-02-01 06:56] LABS: HEMOGLOBIN 7.8 g/dL (12.0-18.0)
--- NOTE | 2022-02-01 07:15 | NUR ---
ENDORSED PT TO AM NURSE FOR CONTINUITY OF CARE.PT IS STABLE
[2022-02-01 08:00] VITALS: BP 133/67
--- NOTE | 2022-02-01 08:08 | NUR ---
RECEIVE ENDORSEMENT FROM PM SHIFT NURSE THAT PATIENT REST IN BED, PIV R. THUMB TKO 5ML/HR, TRACH TO VENT FIO2 24%, PEG-TUBE INFUSING GLUCERNA 1.2 @50ML.HR W/ WATER FLUSHING 200 Q4HR; HAWTHORNE 16FR DRAINING; WOUND AT COCCYX (STAGE IV), ARTERIAL ULCER @ R. MALLEUS PROXIMAL TO ANKLE, L. BELOW KNEE WOUND PRESENT. WILL CONTINUE TO MONITOR
[2022-02-01] MEDS: FAMOTIDINE 20 MG TAB GT SCH (08:41)
[2022-02-01 12:00] VITALS: BP 129/75
[2022-02-01] MEDS: VANCOMYCIN 1,000 MG in DEXTROSE 5% 250 ML IV SCH (15:17)
[2022-02-01] MEDS ORDERED: [UNRECOGNIZED DRUG - CODE] IV (15:41)
[2022-02-01] MEDS ORDERED: Vancomycin Per Pharmacy MC (15:41)
[2022-02-01] MEDS ORDERED: PIPE1SOL IV (15:49)
[2022-02-01 16:00] VITALS: BP 123/65
[2022-02-01 16:38] VITALS: BP 129/75
--- NOTE | 2022-02-01 19:30 | NUR ---
RECEIVED PATIENT IN BED AWAKE, NON VERBAL, TRACH TO VENT. NO S/S OF RESPIRATORY DISTRESS. BREATHING EVEN UNLABORED. TUBE FEEDING GLUCERNA 1.2 RUNNING AT 50 MLS/HR TOLERATING WELL. IV SITE ON THE RIGHT THUMB INTACT AND PATENT. HAWTHORNE CATHETER IN PLACE DRAINING CLEAR YELLOW URINE. ALL SAFETY PRECAUTIONS ARE IN PLACE. WHEELS OF BED LOCKED. WILL CONTINUE TO MONITOR PT.
--- NOTE | 2022-02-01 19:49 | NUR ---
ENDORSE PATIENT TO PM SHIFT NURSE THAT PATIENT REST IN BED, PIV R. THUMB TKO 5ML/HR, TRACH TO VENT FIO2 24%, PEG-TUBE INFUSING GLUCERNA 1.2 @50ML.HR W/ WATER FLUSHING 200 Q4HR; HAWTHORNE 16FR DRAINING; WOUND AT COCCYX (STAGE IV), ARTERIAL ULCER @ R. MALLEUS PROXIMAL TO ANKLE, L. BELOW KNEE WOUND PRESENT. DISCHARGE REPORT GIVE TO [facility] PABLITO. AND PATIENT'S PATIENT'S FATHER CALLED TO UPDATE THAT PATIENT IS GOING BACK TO [facility].
--- NOTE | 2022-02-01 20:05 | NUR ---
PATIENT WAS DISCHARGED TO [facility] PICKED UP BY 3 [facility] STAFF IN STABLE CONDITION.
== END 2022-02-01 20:05 | DRG 720 ==
LOC: MED 15:03 → MTU 18:02
PROVIDERS: ADMIT Student in an Organized Health Care Education/Training Program; ATTEND Student in an Organized Health Care Education/Training Program
PROC: 5A1955Z Respiratory Ventilation, Greater than 96 Consecutive Hours (ICD-10-PCS; principal; 2022-01-23)
DX: A41.9 Sepsis, unspecified organism (principal); J15.1 Pneumonia due to Pseudomonas; L89.154 Pressure ulcer of sacral region, stage 4; G93.1 Anoxic brain damage, not elsewhere classified; E87.0 Hyperosmolality and hypernatremia; J96.11 Chronic respiratory failure with hypoxia; N39.0 Urinary tract infection, site not specified; R65.20 Severe sepsis without septic shock; Z93.0 Tracheostomy status; K21.9 Gastro-esophageal reflux disease without esophagitis; R53.81 Other malaise; E86.1 Hypovolemia; R13.10 Dysphagia, unspecified; E86.0 Dehydration; E87.6 Hypokalemia; E83.52 Hypercalcemia; J40 Bronchitis, not specified as acute or chronic; Z20.822 Contact with and (suspected) exposure to COVID-19; Z93.1 Gastrostomy status; Z22.322 Carrier or suspected carrier of Methicillin resistant Staphylococcus aureus
CPT/HCPCS: 36415; 71045; 80048; 80053; 80150; 80202; 81001; 82272; 83605; 83735; 85025; 87040; 87070; 87081; 87086; 87205; 94002; 94003; 94640; 96361; 96365; 96368; 96375; 99291; J0278; J1644; J2543; J3370; J7060; Q0092

== ENCOUNTER 2022-04-26 19:41 | Inpatient (IN) | payer OTHER ==
[~2022-04-26] VITALS: Ht 177.8 cm; Wt 94.8 kg
[2022-04-26 19:41] VITALS: BP 108/66
[~2022-04-26 19:41] MED LIST changes: -CEPH-588 PO; -METO5SOL24 IVP; +PIPE1SOL IV; +Vancomycin Per Pharmacy MC; +[UNRECOGNIZED DRUG - CODE] IV; -[UNRECOGNIZED DRUG - CODE] IV; -[UNRECOGNIZED DRUG - CODE] IV
--- NOTE | 2022-04-26 19:47 | NUR ---
194 EFRAIN DIALLO AND PLACED ON CARESCAPE VENT. [id number] PEEP5 AND 50% TRACH TO VENT PORTEX SIZE 8
--- NOTE | 2022-04-26 19:47 | NUR ---
PT YOEL ALS. TAKEN TO BED 2
--- NOTE | 2022-04-26 20:36 | NUR ---
pt came in from [facility]. he is awake and non verbal, ehe is tach to ventilator, has downey and peg tube. he is satting at 100 persent on the vent
[2022-04-26 20:57] LABS: BASOPHILS # (AUTO) 0.1 K/uL (0.00-0.22); BASOPHILS % (AUTO) 0.4 % (0.0-2.0); EOSINOPHILS # (AUTO) 0.2 K/uL (0-0.4); EOSINOPHILS % (AUTO) 1.3 % (0.0-4.0); HEMATOCRIT 29.1 % (36-52); HEMOGLOBIN 9.5 g/dL (12.0-18.0); LYMPHOCYTES # (AUTO) 2.9 K/uL (2.0-11.5); LYMPHOCYTES % (AUTO) 16.5 % (20.5-51.1); MEAN CORPUSCULAR HEMOGLOBIN 29 pg (27-31); MEAN CORPUSCULAR HGB CONC 33 g/dL (33-37); MEAN CORPUSCULAR VOLUME 89.3 fL (80-94); MONOCYTES # (AUTO) 0.9 K/uL (0.8-1.0); MONOCYTES % (AUTO) 5.4 % (1.7-9.3); NEUTROPHILS # (AUTO) 13.2 K/uL (1.8-7.7); NEUTROPHILS % (AUTO) 76.4 % (42.2-75.2); PLATELET COUNT (AUTO) 615 K/uL (140-450); RED BLOOD CELL COUNT(AUTO) 3.26 MIL/uL (4.20-6.10); RED CELL DISTRIBUTION WIDTH 18.3 % (11.6-13.7); WHITE BLOOD COUNT (AUTO) 17.3 K/uL (4.8-10.8)
[2022-04-26 21:17] LABS: ALBUMIN 2.4 g/dL (3.4-5.0); ANION GAP 15.7 (8-16); CARBON DIOXIDE 23.7 mmol/L (21-32); CREATININE 1.2 mg/dL (0.6-1.3); POTASSIUM 4.4 mmol/L (3.5-5.1); TOTAL BILIRUBIN 0.2 mg/dL (0.0-1.0)
[2022-04-26] MEDS ORDERED: CEFEPIME 1,000 MG in DEXTROSE 5% 50 ML IV ONE (21:50)
[2022-04-26] MEDS ORDERED: NACL 0.9% 1,000 ML IV ONE ×2 (21:50→21:55)
[2022-04-26] MEDS ORDERED: MAG SULF 2000 MG/WATER PREMIX 50 ML IV PRN (22:00)
[2022-04-26] MEDS ORDERED: HYDROcodone/APAP 5/325 MG 1 TAB TAB PO PRN (22:00)
[2022-04-26] MEDS ORDERED: KCL 20 MEQ/WATER INJ PREMIX 200 ML IV PRN (22:00)
[2022-04-26] MEDS ORDERED: ACETAMINOPHEN 325 MG TAB PO PRN (22:00)
[2022-04-26] MEDS ORDERED: POTASSIUM CHLORIDE 10 MEQ TABER PO PRN (22:00)
[2022-04-26] MEDS ORDERED: ONDANSETRON 4 MG/2 ML VIAL IVP PRN (22:00)
[2022-04-26] MEDS ORDERED: AMIKACIN PER PHARMACY MC PRN (22:10)
[2022-04-26] MEDS ORDERED: VANCOMYCIN PER PHARMACY MC PRN (22:10)
[2022-04-26] MEDS ORDERED: AMIKACIN 700 MG in DEXTROSE 5% 100 ML IV SCH (22:10)
[2022-04-26] MEDS ORDERED: ACETAMINOPHEN 325 MG TAB PEG ONE (22:20)
[2022-04-26] MEDS ORDERED: VANCOMYCIN 1GM/DEXT 5% PREMIX 200 ML IV SCH (23:30)
[2022-04-26] MEDS ORDERED: AMIKACIN 500 MG/2 ML VIAL IV ONE ×2 (23:38→23:45)
[2022-04-26] MEDS ORDERED: VANCOMYCIN 1,000 MG VIAL ONE (23:42)
[2022-04-27 00:11] LABS: APPEARANCE,URINE CLEAR (CLEAR); BILIRUBIN,URINE NEGATIVE (NEGATIVE); BLOOD, URINE 2+ (NEGATIVE); COLOR,URINE YELLOW (YELLOW); LEUKOCYTE ESTERASE ,URINE 3+ (NEGATIVE); NITRITE, URINE POSITIVE (NEGATIVE); UGLUCOSE NEGATIVE (NEGATIVE)
[2022-04-27 00:13] LABS: RBC,URINE 0-5 /HPF (0-5); WBC,URINE TOO MANY TO COUNT /HPF (0-5)
--- NOTE | 2022-04-27 02:14 | NUR ---
0200 TRACH CARE DONE.
[2022-04-27] MEDS ORDERED: CEFEPIME 2,000 MG VIAL IV ONE (04:52)
[2022-04-27] MEDS: CEFEPIME 2,000 MG in DEXTROSE 5% 100 ML IV SCH ×3 (05:17→22:14)
--- NOTE | 2022-04-27 05:30 | NUR ---
AMIkacin meds not available in the ER, pharmacy will send it one
[2022-04-27 05:59] LABS: ANION GAP 14.6 (8-16); CARBON DIOXIDE 22.4 mmol/L (21-32); CREATININE 1.2 mg/dL (0.6-1.3)
--- NOTE | 2022-04-27 06:16 | NUR ---
Amikacin ordered 700mg IVPB, there is not enough vial for 700mg Amiakcin in ER pix. There is on 1 vial 500mg Amikacin. Waiting for pharmacy to open to get Amikacin 700mg IVPB
[2022-04-27 06:30] LABS: BASOPHILS % (AUTO) 0.3 % (0.0-2.0); EOSINOPHILS # (AUTO) 0.3 K/uL (0-0.4); EOSINOPHILS % (AUTO) 2.3 % (0.0-4.0); HEMOGLOBIN 8.9 g/dL (12.0-18.0); LYMPHOCYTES # (AUTO) 2.9 K/uL (2.0-11.5); MEAN CORPUSCULAR HEMOGLOBIN 29 pg (27-31); MEAN CORPUSCULAR HGB CONC 32 g/dL (33-37); MONOCYTES # (AUTO) 0.9 K/uL (0.8-1.0); MONOCYTES % (AUTO) 6.2 % (1.7-9.3); NEUTROPHILS # (AUTO) 10.4 K/uL (1.8-7.7); NEUTROPHILS % (AUTO) 71.2 % (42.2-75.2); PLATELET COUNT (AUTO) 555 K/uL (140-450); RED BLOOD CELL COUNT(AUTO) 3.11 MIL/uL (4.20-6.10); RED CELL DISTRIBUTION WIDTH 18.2 % (11.6-13.7); WHITE BLOOD COUNT (AUTO) 14.6 K/uL (4.8-10.8)
--- NOTE | 2022-04-27 07:29 | NUR ---
PATIENT HAS BEEN SCREENED AND CATEGORIZED HIGH NUTRITION RISK. PATIENT WILL BE SEEN WITHIN 1-2 DAYS OF ADMISSION. 04/27/[address]
[2022-04-27 07:55] VITALS: BP 104/71
--- NOTE | 2022-04-27 08:33 | NUR ---
Patient will be admitted to care of Deepa CANTU. Admitted to Telemetry. Will go to room 122. Belongings list completed. Report to Naveen MONACO.
--- NOTE | 2022-04-27 08:38 | NUR ---
RECEIVED ON A TagArraySCAPE R860 VENTILATOR PLUGGED INTO RED OUTLET TOLERATING WELL WITHOUT ADVERSE REACTIONS NOTED TO A PORTEX DCT #8 AIRWAY SECURED WITH A ZOEY TRACH0 TIE CUFF PRESSURE CHECKED NOTED AMBU BAG AT BEDSIDE STABLE GOOD CHEST RISE JASON TRACHEAL SUCTION FOR MODERATE THIN PALE YELLOW SECRETIONS AIRWAY PATENT
[2022-04-27] MEDS: ENOXAPARIN 40 MG/0.4 ML SYR SUBQ SCH (09:03)
[2022-04-27] MEDS: VANCOMYCIN 750 MG in DEXTROSE 5% 250 ML IV SCH ×2 (11:00→23:49)
--- NOTE | 2022-04-27 11:53 | NUR ---
RESTING WELL EQUAL CHEST RISE GOOD AERATION THROUGHOUT BILATERAL LUNG HICKEY AIRWAY PATENT
[2022-04-27] MEDS ORDERED: AMIKACIN 450 MG in DEXTROSE 5% 100 ML IV SCH (12:00)
--- NOTE | 2022-04-27 12:58 | NUR ---
DC PLANNING OUTREACHED TO PT'S MOTHER MAHI HOFFMAN TO GATHER COLLATERAL INFORMATION. MS. HOFFMAN REPORTS PATIENT HAS BEEN IN SUB-ACUTE CARE WITH [facility] SINCE NOVEMBER 11, PATIENT IS TRAYC/VENT AND IS TOTAL CARE. MOTHER IS ACTIVE IN PATIENTS CARE. MS. HOFFMAN REPORTS DC PLAN IS FOR PT TO RETURN TO [facility] WHEN MEDICALLY STABLE. MS HOFFMAN REQUESTING UPDATE ON PTS STATUS, CALL FORWARDED TO PT NURSE FOR UPDATE. Addendum: 04/27/22 at 1259 by Saira CAN Amended: Links added. Addendum: 05/04/22 at 1138 by Saira CAN REFERRAL PACKET SENT TO [facility]. Addendum: 05/04/22 at 1429 by Saira Hand SS SPOKE WITH ABELARDO ZHOU REPORTS PT ACCEPTED TO ROOM 6C, ACCEPTING , DR. VALENTIN. CALL REPORT NUMBER [phone]. TRANSPORTATION REQUEST FORM SENT TO [facility] [phone]
--- NOTE | 2022-04-27 16:08 | NUR ---
04/27/22 RD INITIAL ASSESSMENT COMPLETED PLEASE REFER TO NUTRITION ASSESSMENT UNDER CARE ACTIVITY FOR ESTIMATED NUTRITIONAL NEEDS. 1. RECOMMEND JEVITY 1.2 WITH A GOAL RATE OF 70ML/HR -FWF: 150ML Q6H OR PER MD -WILL PROVIDE 1680ML TOTAL VOLUME, 2016KCAL, 93GM PROTEIN, AND 1955ML FREE WATER, MEETING 100% OF ESTIMATED ENERGY NEEDS 2. MONITOR GASTRIC RESIDUALS 3. RD TO FOLLOW-UP 7 DAYS, LOW RISK SAIDA NASH RD Addendum: 04/28/22 at [address] RECEIVED CONSULT FOR WOUNDS/PRESSURE INJURY. RECOMMENDED KYARA BID FOR WOUND HEALING. RN AWARE. KYARA BID WILL PROVIDE ADDITIONAL 160KCAL AND 5GM PROTEIN DAILY. WILL CONTINUE TO MONITOR. SAIDA NASH RD
[2022-04-27] MEDS: MORPHINE SULFATE 4 MG/ML SYR IVP PRN (18:43)
--- NOTE | 2022-04-27 21:52 | NUR ---
WALKED IN ROOM AND NOTED THAT PT WAS FLUSHED (FACE VERY RED), VOLUMES WERE IN THE 100S, AND NOISE HEARD FROM THROAT. PUT AIR IN CUFF, BUT IT WOULD NOT STAY INFLATED. PT WAS STRUGGLING TO BREATH AND NO AIR MOVEMENT WAS HEARD IN CHEST. BEGAN BAGGING PATIENT WITH DIFFICULTY. CALLED ER DOCTOR TO REPLACE TRACH. CUFF WAS BLOWN AND CANNULA WAS BLOCKED WITH SPUTUM. DOCTOR REPLACED TRACH - PORTEX 8- CUFF WAS INFLATED AND PATIENT WAS RESTING COMFORTABLY
[2022-04-27 22:22] VITALS: BP 155/89
[2022-04-28] VITALS (7 sets, daily range): BP systolic 96–131; BP diastolic 50–70
[2022-04-28] MEDS: MORPHINE SULFATE 4 MG/ML SYR IVP PRN (01:58)
[2022-04-28] MEDS: CEFEPIME 2,000 MG in DEXTROSE 5% 100 ML IV SCH ×4 (05:12→21:58)
[2022-04-28 06:09] LABS: BASOPHILS % (AUTO) 0.3 % (0.0-2.0); EOSINOPHILS # (AUTO) 0.3 K/uL (0-0.4); EOSINOPHILS % (AUTO) 2.1 % (0.0-4.0); HEMATOCRIT 25.4 % (36-52); HEMOGLOBIN 8.1 g/dL (12.0-18.0); LYMPHOCYTES # (AUTO) 2.9 K/uL (2.0-11.5); LYMPHOCYTES % (AUTO) 20.2 % (20.5-51.1); MEAN CORPUSCULAR HEMOGLOBIN 29 pg (27-31); MEAN CORPUSCULAR HGB CONC 32 g/dL (33-37); MEAN CORPUSCULAR VOLUME 90.2 fL (80-94); MONOCYTES # (AUTO) 0.9 K/uL (0.8-1.0); MONOCYTES % (AUTO) 6.1 % (1.7-9.3); NEUTROPHILS # (AUTO) 10.3 K/uL (1.8-7.7); NEUTROPHILS % (AUTO) 71.3 % (42.2-75.2); PLATELET COUNT (AUTO) 531 K/uL (140-450); RED BLOOD CELL COUNT(AUTO) 2.82 MIL/uL (4.20-6.10); RED CELL DISTRIBUTION WIDTH 18.1 % (11.6-13.7); WHITE BLOOD COUNT (AUTO) 14.4 K/uL (4.8-10.8)
[2022-04-28 06:19] LABS: ANION GAP 13.8 (8-16); CREATININE 1.2 mg/dL (0.6-1.3); POTASSIUM 3.8 mmol/L (3.5-5.1)
--- NOTE | 2022-04-28 07:25 | NUR ---
RECEIVED REPORT FROM DANCE DIRECTOR NURSE. PATIENT LYING DOWN IN BED, APHASIC ON TRACH TO VENT FIO2: 24%, VT:500, RATE:14, PEEP:5 WITH O2 SAT AT 94%. FLACC 0. HAS LLE ABRASION AND OLD HEALED WOUND ON STOMACH. GTUBE IN PLACE, INFUSING FEEDING PER MD ORDERS. RIGHT IV LINE INTACT, PATENT, ON SALINE LOCK. HAWTHORNE CATHETER IN PLACE. REVIEWED PLAN OF CARE WITH PATIENT. UNABLE TO COMPREHEND. SAFETY MEASURES IN PLACE, CALL LIGHT WITHIN REACH. WILL CONTINUE TO MONITOR.
[2022-04-28] MEDS: ENOXAPARIN 40 MG/0.4 ML SYR SUBQ SCH (09:23)
--- NOTE | 2022-04-28 09:26 | NUR ---
SCHEDULED MEDICATIONS DUE GIVEN. WILL CONTINUE TO MONITOR.
--- NOTE | 2022-04-28 10:42 | NUR ---
RECEIVED ON A YourNextLeapSCAPE R860 VENTILATOR PLUGGED INTO RED OUTLET TOLERATING WELL WITHOUT ADVERSE REACTIONS NOTED TO A PORTEX DCT #8 AIRWAY SECURED WITH A ZOEY TRACH TIE CUFF PRESSURE CHECKED NOTED AMBU BAG AT BEDSIDE STABLE RESTING COMFORTABLY GOOD CHEST RISE AND AERATION THROUGHOUT BILATERAL LUNG HICKEY AIRWAY PATENT
--- NOTE | 2022-04-28 14:24 | NUR ---
STABLE GOOD CHEST RISE AIRWAY PATENT PICC LINE RN BEDSIDE FOR LINE INSERTION
--- NOTE | 2022-04-28 15:05 | NUR ---
WOUND CARE EVALUATION NOTE: PRIMARY RN REPORT PT. ADMITTED WITH PRESSURE INJURY TO SACRALCOCCYX AND WOUND TO RLE. PLAN OF CARE DISCUSSED WITH PRIMARY RN. INTEGUMENTARY: -INCONTINENT ASSOCIATE DERMATITIS (IAD) TO: B/L GROINS EXTENDED TO VERA-ANAL, SKIN REDNESS -PRESSURE INJURY STAGE 4, SACROCOCCYX 4Q1T1CZ, WOUND BED IS 500% GRANULATING TISSUE, AND 50% BROWN/FLORES MOIST TISSUE, MODERATE AMOUNT SEROUS DRAINAGE, MILD ODOR, UNDERMINING 5 TO 8 OCLOCK DIRECTION, WOUND EDGE FLAT, VERA WOUND SKIN EVIDENCE OF HEALING SCAR -RLE STASIS ULCER 7X2X0.2CM WOUND BED 100% RED GRANULATION TISSUE, MODERATE AMOUNT SEROUS DRAINAGE, NO ODOR, VERA WOUND SKIN DRY INTACT RECOMMENDATIONS: -APPLY THIN LAYER OF Z-GUARD TO R/L GROINS EXTENDED TO VERA-ANAL BID AND PRN IF SOILING - CLEANSE SACRALCOCCYX AND RLE WOUNDS WITH WOUND CLEANSING SOLUTION AND APPLY ALGINATE DRESSING COVER WITH ISLAND DRESSING QD AND PRN IF SOILING -POSITIONING: TURN AND REPOSITION PATIENT Q 2H OR SOONER USE PILLOWS TO KEEP BONY PROMINENCES FROM DIRECT CONTACT WITH SURFACES USE REPOSITIONING WEDGES TO PROVIDE 30-DEGREE ANGLE FOR SIDE LYING POSITIONS OFFLOADING OR FOAM DRESSING TO ALL TUBING TO PREVENT MEDICAL DEVICES RELATED PRESSURE INJURY -RE-EVALUATING AND MANAGING INCONTINENCE MONITOR SKIN CONDITION DURING POSITION CHANGE DO NOT MASSAGE REDNESS, BONY PROMINENCES FREQUENT VERA-CARE AND PROVIDE BARRIER CREAMS PRN IF SOILING MOISTURE CONTROL BY OFFER BED HUNG/URINAL /ABSORBENT PAD TO WICK AND HOLD MOISTURE. MAY OBTAIN ORDER FOR FLEX SEAL, RECTAL BAG OR HAWTHORNE CATHETER PER PHYSICIAN ORDER UNLESS OTHERWISE CONTRAINDICATED KEEP SKIN DRY AND PROTECT FROM FRICTION -MANAGE FRICTION/SHEAR/MOBILITY KEEP HOB AT THE LOWEST LEVEL OF ELEVATION NO MORE THAN 30 DEGREES UNLESS OTHERWISE CONTRAINDICATED USE LIFT SHEET OR TRANSFER DEVICE TO MOVE PATIENT AND PREVENT LATERAL SHEER. CONSIDER TRAPEZE IF APPROPRIATE PROTECT HEELS, ELBOWS BONY PROMENANCES WITH SKIN BERRIES OR FOAM DRESSING IF EXPOSED TO FRICTION OFFLOAD BILATERAL HEELS BY PLACING PILLOWS UNDER CALVES AT ALL TIMES, UNLESS OTHERWISE CONTRAINDICATED -PRESSURE REDISTRIBUTION SURFACE THERAPY TRIPP ISOFLEX UMANG MATTRESS -NUTRITION: PLEASE FOLLOW RD RECOMMENDATIONS AND OFFER NUTRITION SUPPLEMENTS IF ORDERED.
[2022-04-28] MEDS ORDERED: Z-GUARD PASTE TP PRN (15:10)
[2022-04-28] MEDS ORDERED: ALGINATE DRESSING MC PRN (15:10)
--- NOTE | 2022-04-28 19:39 | NUR ---
RECEIVED ENDORSEMENT FROM DAY SHIFT NURSE FOR CONTINUITY OF PT CARE. PT IS ON BED, APHASIC AND UNABLE TO RESPONSE. PT IS AWAKE. PT IS ON GTUBE OF JEVITY 1.2 AT 70ML/HR, WATER FLUSH 150ML EVERY 6 HRS WITH SUPPLEMENT JUEVENT BID. HAWTHORNE CATHETER INTACT AND PATENT, FUNCTIONING WELL. IV SITE IS ON RIGHT UPPER ARM - PICC LINE OF DOUBLE LUMENS INTACT AND PATENT. PLAN FOR DEBRIDEMENT PROCEDURE TOMORROW MORNING. PT WILL BE NPO AFTER MIDNIGHT AND HE WILL BE ON D10 HYDRATION. CONTINUE MONITORING.
--- NOTE | 2022-04-28 19:40 | NUR ---
GAVE REPORT TO MEDICAL ART THERAPIST NURSE FOR CONTINUITY OF CARE. PATIENT IN STABLE CONDITION.
--- NOTE | 2022-04-28 22:45 | NUR ---
CHENG BAEZ CALLED AND ORDER CBC, PT/PTT, CHEM7, ECHOCARDIOGRAM AND 12 LEADS EKG FOR TOMORROW MORNING.
[2022-04-29] VITALS: BP 132/73
--- NOTE | 2022-04-29 00:05 | NUR ---
GTUBE FEEDING HELD. PT IS NPO. STARTS D10 FLUID HYDRATION AT 40ML/HR. PT IS STABLE, NO CHANGE OF CONDITION.
[2022-04-29] MEDS: DEXTROSE 10% 1,000 ML IV SCH (00:42)
[2022-04-29] MEDS: Z-GUARD PASTE TP SCH ×2 (00:46→12:37)
--- NOTE | 2022-04-29 03:00 | NUR ---
PT IS ON STABLE CONDITION. NO SOB OR DISTRESS. CURRENTLY, PT IS NPO. PT IS TOLERATING WELL.
[2022-04-29 04:00] VITALS: BP 138/74
[2022-04-29] MEDS: CEFEPIME 2,000 MG in DEXTROSE 5% 100 ML IV SCH ×2 (05:21→12:36)
[2022-04-29 06:35] LABS: BASOPHILS # (AUTO) 0.1 K/uL (0.00-0.22); BASOPHILS % (AUTO) 0.6 % (0.0-2.0); EOSINOPHILS # (AUTO) 0.4 K/uL (0-0.4); EOSINOPHILS % (AUTO) 2.7 % (0.0-4.0); HEMATOCRIT 28.7 % (36-52); LYMPHOCYTES # (AUTO) 2.5 K/uL (2.0-11.5); MEAN CORPUSCULAR HEMOGLOBIN 28 pg (27-31); MEAN CORPUSCULAR HGB CONC 31 g/dL (33-37); MEAN CORPUSCULAR VOLUME 90.6 fL (80-94); MONOCYTES # (AUTO) 0.9 K/uL (0.8-1.0); MONOCYTES % (AUTO) 5.5 % (1.7-9.3); NEUTROPHILS # (AUTO) 11.9 K/uL (1.8-7.7); NEUTROPHILS % (AUTO) 75.2 % (42.2-75.2); PLATELET COUNT (AUTO) 599 K/uL (140-450); RED BLOOD CELL COUNT(AUTO) 3.17 MIL/uL (4.20-6.10); RED CELL DISTRIBUTION WIDTH 18.3 % (11.6-13.7); WHITE BLOOD COUNT (AUTO) 15.8 K/uL (4.8-10.8)
[2022-04-29 06:53] LABS: PROTHROMBIN TIME 10.8 secs (10.8-13.4)
[2022-04-29 07:00] LABS: CARBON DIOXIDE 24.7 mmol/L (21-32); POTASSIUM 3.7 mmol/L (3.5-5.1)
--- NOTE | 2022-04-29 07:35 | NUR ---
PT IS ON STABLE CONDITION. ALL SAFETY MEASURES ARE IN PLACES. ENDORSED TO DAY SHIFT NURSE FOR CONTINUITY OF CARE.
[2022-04-29 08:00] VITALS: BP 142/86
[2022-04-29] MEDS ORDERED: LIDOCAINE 1% 500 MG/50 ML VIAL ONE (08:39)
[2022-04-29] MEDS ORDERED: BUPIVACAINE-MPF/EPI 0.25% 10 ML VIAL INJ ONE (08:39)
[2022-04-29] MEDS ORDERED: fentaNYL citrate 0.05 MG/ML - 50mL vial IV ONE (10:00)
[2022-04-29] MEDS ORDERED: ONDANSETRON 4 MG/2 ML VIAL ONE ×2 (10:00→11:17)
[2022-04-29] MEDS ORDERED: SEVOFLURANE 250 ML BTL INH ONE (10:00)
[2022-04-29] MEDS ORDERED: ROCURONIUM 50 MG/5 ML VIAL IV ONE ×2 (10:00→11:14)
[2022-04-29] MEDS ORDERED: fentaNYL citrate 0.05 MG/ML VIAL ONE (10:38)
[2022-04-29 12:00] VITALS: BP 152/98
--- NOTE | 2022-04-29 12:24 | NUR ---
NINETY NINE PERCENT OXYGEN SATURATION AFTER RETURN FROM PROCEDURE. GIVEN COMPLETE BED BATH AND NEW HAWTHORNE CATHETER HAWTHORNE WAS OUT UPON RETURN FROM OR.
[2022-04-29] MEDS: ALGINATE DRESSING MC SCH (12:36)
[2022-04-29 16:00] VITALS: BP 123/74
[2022-04-29] MEDS: MEROPENEM 1,000 MG in NACL 0.9% 50 ML IV SCH (17:50)
--- NOTE | 2022-04-29 19:20 | NUR ---
RECEIVED REPORT FROM MORNING SHIFT NURSE OLAF. PATIENT IS NON VERBAL TRACH TO VENT SETTING: AC/PRVC FIO2 24% TV 500 R-14 PEEP 5. NO S/S OF RESPIRATORY DISTRESS. BREATHING REGULAR NON LABORED. PICC LINE ON THE RIGHT UPPER ARM DOUBLE LUMEN. TUBE FEEDING JEVITY 1.2 RUNNING 70 MLS/HR TOLERATING WELL. HAWTHORNE CATHETER DRAINING WELL. ALL SAFETY PRECAUTIONS ARE IN PLACE. HEAD OF BED ELEVATED. BED WHEELS LOCKED.
[2022-04-29 20:00] VITALS: BP 113/62
[2022-04-29] MEDS ORDERED: VANCOMYCIN 1,000 MG in DEXTROSE 5% 250 ML IV SCH (23:00)
--- NOTE | 2022-04-29 23:25 | NUR ---
SCHEDULED MEDS GIVEN ORDERED.
[2022-04-30] VITALS: BP 116/77
[2022-04-30] MEDS: Z-GUARD PASTE TP SCH ×2 (01:27→13:00)
[2022-04-30] MEDS: DEXTROSE 10% 1,000 ML IV SCH (02:00)
[2022-04-30] MEDS: MEROPENEM 1,000 MG in NACL 0.9% 50 ML IV SCH ×3 (04:23→21:48)
--- NOTE | 2022-04-30 04:23 | NUR ---
MERREM ADMINISTERED PER MD ORDER.
[2022-04-30 06:06] VITALS: BP 151/90
[2022-04-30 06:15] LABS: ANION GAP 9.6 (8-16); CARBON DIOXIDE 24.2 mmol/L (21-32); POTASSIUM 3.8 mmol/L (3.5-5.1)
[2022-04-30 06:36] LABS: BASOPHILS # (AUTO) 0.1 K/uL (0.00-0.22); BASOPHILS % (AUTO) 0.4 % (0.0-2.0); EOSINOPHILS # (AUTO) 0.4 K/uL (0-0.4); EOSINOPHILS % (AUTO) 2.1 % (0.0-4.0); HEMATOCRIT 27.5 % (36-52); HEMOGLOBIN 8.6 g/dL (12.0-18.0); LYMPHOCYTES # (AUTO) 2.4 K/uL (2.0-11.5); LYMPHOCYTES % (AUTO) 14.4 % (20.5-51.1); MEAN CORPUSCULAR HEMOGLOBIN 29 pg (27-31); MEAN CORPUSCULAR HGB CONC 31 g/dL (33-37); MEAN CORPUSCULAR VOLUME 91.4 fL (80-94); MONOCYTES # (AUTO) 0.8 K/uL (0.8-1.0); NEUTROPHILS # (AUTO) 13.1 K/uL (1.8-7.7); NEUTROPHILS % (AUTO) 78.1 % (42.2-75.2); PLATELET COUNT (AUTO) 550 K/uL (140-450); RED BLOOD CELL COUNT(AUTO) 3.01 MIL/uL (4.20-6.10); RED CELL DISTRIBUTION WIDTH 18.5 % (11.6-13.7); WHITE BLOOD COUNT (AUTO) 16.7 K/uL (4.8-10.8)
--- NOTE | 2022-04-30 07:47 | NUR ---
BEDSIDE ENDORSEMENT GIVEN TO DAY SHIFT NURSE OLAF FOR CONTINUITY OF CARE.
[2022-04-30 12:00] VITALS: BP 143/78
[2022-04-30] MEDS: ALGINATE DRESSING MC SCH (13:00)
--- NOTE | 2022-04-30 13:29 | NUR ---
LAB CALLED CONCERNING NEW CRITICAL LAB VALUE, SPUTUM CULTURE POSITIVE FOR E.COLI ESBL. DR. REDDY NOTIFIED, NO NEW ORDERS RECEIVED.
[2022-04-30 16:49] VITALS: BP 140/70
--- NOTE | 2022-04-30 19:30 | NUR ---
PATIENT IS APHASIC TRACH TO VENT DEPENDENT. NO S/S OF RESPIRATORY DISTRESS. BREATHING NORMAL WITH SYMMETRICAL RISE AND FALL OF THE CHEST. PICC LINE ON THE RIGHT UPPER ARM, PATENT. TUBE FEEDING JEVITY 1.2 RUNNING 70 MLS/HR. HAWTHORNE CATHETER DRAINING WELL. ALL SAFETY MEASURES IN PLACE. HEAD OF BED ELEVATED.
[2022-04-30 20:00] VITALS: BP 105/67
--- NOTE | 2022-04-30 21:48 | NUR ---
SCHEDULED DUE MEDICATION ADMINISTERED.
[2022-05-01] VITALS: BP 111/73
[2022-05-01] MEDS: DEXTROSE 10% 1,000 ML IV SCH
[2022-05-01] MEDS: Z-GUARD PASTE TP SCH ×2 (01:00→13:45)
[2022-05-01 04:00] VITALS: BP 138/88
--- NOTE | 2022-05-01 04:30 | NUR ---
PATIENT SLEEPING. NO S/S OF RESPIRATORY DISTRESS. BREATHING REGULAR NON LABORED.
[2022-05-01] MEDS: MEROPENEM 1,000 MG in NACL 0.9% 50 ML IV SCH (04:38)
[2022-05-01 06:20] LABS: ANION GAP 11.8 (8-16); CARBON DIOXIDE 24.2 mmol/L (21-32)
[2022-05-01 06:22] LABS: BASOPHILS # (AUTO) 0.1 K/uL (0.00-0.22); BASOPHILS % (AUTO) 0.5 % (0.0-2.0); EOSINOPHILS # (AUTO) 0.3 K/uL (0-0.4); EOSINOPHILS % (AUTO) 2.1 % (0.0-4.0); HEMATOCRIT 30.3 % (36-52); HEMOGLOBIN 9.6 g/dL (12.0-18.0); LYMPHOCYTES # (AUTO) 2.9 K/uL (2.0-11.5); LYMPHOCYTES % (AUTO) 18.8 % (20.5-51.1); MEAN CORPUSCULAR HEMOGLOBIN 29 pg (27-31); MEAN CORPUSCULAR HGB CONC 32 g/dL (33-37); MEAN CORPUSCULAR VOLUME 90.4 fL (80-94); MONOCYTES % (AUTO) 6.3 % (1.7-9.3); NEUTROPHILS % (AUTO) 72.3 % (42.2-75.2); PLATELET COUNT (AUTO) 559 K/uL (140-450); RED BLOOD CELL COUNT(AUTO) 3.35 MIL/uL (4.20-6.10); RED CELL DISTRIBUTION WIDTH 18.3 % (11.6-13.7); WHITE BLOOD COUNT (AUTO) 15.2 K/uL (4.8-10.8)
--- NOTE | 2022-05-01 07:11 | NUR ---
GAVE REPORT TO DAY SHIFT NURSE OLAF FOR CONTINUITY OF CARE.
[2022-05-01 08:00] VITALS: BP 106/71
[2022-05-01 12:00] VITALS: BP 103/56
[2022-05-01] MEDS: ALGINATE DRESSING MC SCH (13:45)
[2022-05-01] MEDS: MEROPENEM 1,000 MG in NACL 0.9% 100 ML IV SCH ×2 (13:46→20:21)
[2022-05-01 16:30] VITALS: BP 109/81
[2022-05-01] MEDS ORDERED: MAG SULF 2000 MG/WATER PREMIX 50 ML IV SCH (19:30)
[2022-05-01 20:00] VITALS: BP 126/75
[2022-05-01] MEDS: FAMOTIDINE 20 MG/2 ML VIAL IV SCH (20:21)
--- NOTE | 2022-05-01 20:21 | NUR ---
Scheduled medications administered as ordered.
[2022-05-02] VITALS: BP 135/87
[2022-05-02] MEDS: DEXTROSE 10% 1,000 ML IV SCH
--- NOTE | 2022-05-02 00:46 | NUR ---
PATIENT SLEEPING TRACH TO VENT DEPENDENT. NO SOB , FLACC 0. IVF D10 INFUSING AT 40 MLS/HR ON THE RIGHT UPPER ARM PICC LINE. TUBE FEEDING JEVITY 1.2 RUNNING 70 MLS/HR WELL TOLERATED. ALL SAFETY MEASURES ARE IN PLACE. HEAD OF BED ELEVATED.
[2022-05-02] MEDS: Z-GUARD PASTE TP SCH ×2 (01:29→12:06)
[2022-05-02] MEDS: ALBUTEROL SULFATE/IPRATROPIU 3 ML SOL IH SCH ×5 (01:50→23:30)
[2022-05-02 04:00] VITALS: BP 137/80
[2022-05-02] MEDS: MEROPENEM 1,000 MG in NACL 0.9% 100 ML IV SCH ×3 (05:23→20:07)
[2022-05-02 06:22] LABS: BASOPHILS # (AUTO) 0.1 K/uL (0.00-0.22); BASOPHILS % (AUTO) 0.5 % (0.0-2.0); EOSINOPHILS # (AUTO) 0.4 K/uL (0-0.4); EOSINOPHILS % (AUTO) 2.6 % (0.0-4.0); HEMATOCRIT 30.8 % (36-52); HEMOGLOBIN 9.5 g/dL (12.0-18.0); LYMPHOCYTES # (AUTO) 2.8 K/uL (2.0-11.5); LYMPHOCYTES % (AUTO) 17.2 % (20.5-51.1); MEAN CORPUSCULAR HEMOGLOBIN 28 pg (27-31); MEAN CORPUSCULAR HGB CONC 31 g/dL (33-37); MEAN CORPUSCULAR VOLUME 90.7 fL (80-94); MONOCYTES # (AUTO) 0.8 K/uL (0.8-1.0); MONOCYTES % (AUTO) 5.1 % (1.7-9.3); NEUTROPHILS % (AUTO) 74.6 % (42.2-75.2); PLATELET COUNT (AUTO) 544 K/uL (140-450); RED BLOOD CELL COUNT(AUTO) 3.39 MIL/uL (4.20-6.10); RED CELL DISTRIBUTION WIDTH 18.6 % (11.6-13.7); WHITE BLOOD COUNT (AUTO) 16.2 K/uL (4.8-10.8)
[2022-05-02 06:24] LABS: ANION GAP 12.7 (8-16); CREATININE 0.9 mg/dL (0.6-1.3); POTASSIUM 3.7 mmol/L (3.5-5.1)
[2022-05-02 06:33] LABS: MAGNESIUM 2.4 mg/dL (1.8-2.4); PHOSPHORUS 2.5 mg/dL (2.5-4.9)
--- NOTE | 2022-05-02 07:12 | NUR ---
GAVE REPORT TO DAY SHIFT NURSE FOR CONTINUITY OF CARE.
--- NOTE | 2022-05-02 07:47 | NUR ---
GOT REPORT FROM THE NIGHT NURSE, PT IN BED, NO SOB THE VENT SETTING IS CORRECT [id number]
[2022-05-02 08:00] VITALS: BP 109/55
[2022-05-02] MEDS: ENOXAPARIN 40 MG/0.4 ML SYR SUBQ SCH (08:36)
[2022-05-02] MEDS: FAMOTIDINE 20 MG/2 ML VIAL IV SCH ×2 (08:38→21:00)
[2022-05-02 12:00] VITALS: BP 118/69
[2022-05-02] MEDS: ALGINATE DRESSING MC SCH (12:05)
[2022-05-02] MEDS ORDERED: POTASSIUM CHLORIDE 20% 40 MEQ/15 ML UDC GT SCH (15:00)
[2022-05-02 16:00] VITALS: BP 117/63
--- NOTE | 2022-05-02 19:45 | NUR ---
RECEIVED REPORT FROM AM SHIFT RN. PT A&O X0. UNABLE TO MAKE NEEDS KNOWN. TRACH TO VENT FI02 24 VT 500 RATE 20 PEEP 5. KRYSTA PICC LINE. INCONTINENT [place] IN PLACE. CONTACT PRECAUTION FOR ESBL AND POSITIVE SPUTUM.
[2022-05-02 20:00] VITALS: BP 123/73
[2022-05-03] VITALS: BP 117/73
[2022-05-03] MEDS: Z-GUARD PASTE TP SCH ×2 (01:50→13:00)
[2022-05-03 04:00] VITALS: BP 120/73
[2022-05-03] MEDS: MEROPENEM 1,000 MG in NACL 0.9% 100 ML IV SCH ×3 (05:25→21:35)
[2022-05-03 06:14] LABS: BASOPHILS # (AUTO) 0.1 K/uL (0.00-0.22); BASOPHILS % (AUTO) 0.4 % (0.0-2.0); EOSINOPHILS # (AUTO) 0.4 K/uL (0-0.4); EOSINOPHILS % (AUTO) 2.8 % (0.0-4.0); HEMATOCRIT 28.5 % (36-52); HEMOGLOBIN 8.9 g/dL (12.0-18.0); LYMPHOCYTES # (AUTO) 2.5 K/uL (2.0-11.5); LYMPHOCYTES % (AUTO) 17.4 % (20.5-51.1); MEAN CORPUSCULAR HEMOGLOBIN 28 pg (27-31); MEAN CORPUSCULAR HGB CONC 31 g/dL (33-37); MEAN CORPUSCULAR VOLUME 90.4 fL (80-94); MONOCYTES # (AUTO) 0.9 K/uL (0.8-1.0); MONOCYTES % (AUTO) 6.2 % (1.7-9.3); NEUTROPHILS # (AUTO) 10.5 K/uL (1.8-7.7); NEUTROPHILS % (AUTO) 73.2 % (42.2-75.2); PLATELET COUNT (AUTO) 481 K/uL (140-450); RED BLOOD CELL COUNT(AUTO) 3.16 MIL/uL (4.20-6.10); RED CELL DISTRIBUTION WIDTH 18.8 % (11.6-13.7); WHITE BLOOD COUNT (AUTO) 14.4 K/uL (4.8-10.8)
[2022-05-03 06:43] LABS: ANION GAP 13.6 (8-16); CARBON DIOXIDE 25.5 mmol/L (21-32); POTASSIUM 4.1 mmol/L (3.5-5.1)
[2022-05-03 07:09] LABS: CREATININE 0.8 mg/dL (0.6-1.3)
[2022-05-03 07:14] LABS: PHOSPHORUS 2.4 mg/dL (2.5-4.9)
--- NOTE | 2022-05-03 07:38 | NUR ---
GOT REPORT FROM THE NIGHT NURSE, PT SLEEPING TRACK VENT IN PLACE PT 02 99% [id number]
[2022-05-03 08:00] VITALS: BP 108/62
[2022-05-03] MEDS: ALBUTEROL SULFATE/IPRATROPIU 3 ML SOL IH SCH ×3 (08:05→19:00)
--- NOTE | 2022-05-03 08:08 | NUR ---
REPORT GIVEN TO AM SHIFT JACINDA GRAHAM.
[2022-05-03] MEDS: ENOXAPARIN 40 MG/0.4 ML SYR SUBQ SCH (08:54)
[2022-05-03] MEDS: FAMOTIDINE 20 MG/2 ML VIAL IV SCH ×2 (08:56→21:35)
[2022-05-03 12:00] VITALS: BP 108/62
[2022-05-03] MEDS: ALGINATE DRESSING MC SCH (13:00)
[2022-05-03 16:00] VITALS: BP 131/77
[2022-05-03 20:00] VITALS: BP 118/63
--- NOTE | 2022-05-03 22:23 | NUR ---
PATIENT IS LYING ON BED, PATIENT IN ON VENT , NO ANY RESPIRATORY DISTRESS NOTED AT THIS TIME,VITAL SIGN IS WITHIN THE NORMAL RANGE, PATIENT HAS FOLYS CATHETER, CALL LIGHT IS WITHIN THE REACH, WILL CONTINUE TO MONITOR PATIENT.
[2022-05-04] VITALS: BP 125/66
--- NOTE | 2022-05-04 00:14 | NUR ---
VITAL SIGN IS WITHIN THE NORMAL RANGE,PATIENT IS LYING ON BED, CALL LIGHT IS WITHIN THE REACH, WILL CONTINUE TO MONITOR PATIENT.
[2022-05-04] MEDS: Z-GUARD PASTE TP SCH ×2 (00:38→13:00)
[2022-05-04 04:00] VITALS: BP 125/85
[2022-05-04] MEDS: MEROPENEM 1,000 MG in NACL 0.9% 100 ML IV SCH ×2 (04:13→13:00)
--- NOTE | 2022-05-04 04:18 | NUR ---
PATIENT IS LYING ON BED, VITAL SIGN IS WITHIN THE NORMAL RANGE, NO ANY SIGN OF RESPIRATORY DISTRESS NOTED AT THIS TIME, CALL LIGHT IS WITHIN THE REACH, WILL CONTINUE TO MONITOR PATIENT.
[2022-05-04 06:10] LABS: BASOPHILS # (AUTO) 0.1 K/uL (0.00-0.22); BASOPHILS % (AUTO) 0.4 % (0.0-2.0); EOSINOPHILS # (AUTO) 0.4 K/uL (0-0.4); HEMATOCRIT 28.5 % (36-52); HEMOGLOBIN 9.1 g/dL (12.0-18.0); LYMPHOCYTES # (AUTO) 2.5 K/uL (2.0-11.5); LYMPHOCYTES % (AUTO) 18.8 % (20.5-51.1); MEAN CORPUSCULAR HEMOGLOBIN 29 pg (27-31); MEAN CORPUSCULAR HGB CONC 32 g/dL (33-37); MEAN CORPUSCULAR VOLUME 90.8 fL (80-94); MONOCYTES # (AUTO) 0.9 K/uL (0.8-1.0); MONOCYTES % (AUTO) 6.9 % (1.7-9.3); NEUTROPHILS # (AUTO) 9.3 K/uL (1.8-7.7); NEUTROPHILS % (AUTO) 70.9 % (42.2-75.2); PLATELET COUNT (AUTO) 444 K/uL (140-450); RED BLOOD CELL COUNT(AUTO) 3.14 MIL/uL (4.20-6.10); RED CELL DISTRIBUTION WIDTH 19.4 % (11.6-13.7); WHITE BLOOD COUNT (AUTO) 13.2 K/uL (4.8-10.8)
[2022-05-04 06:27] LABS: ANION GAP 10.5 (8-16); CARBON DIOXIDE 28.5 mmol/L (21-32); CREATININE 0.8 mg/dL (0.6-1.3)
[2022-05-04 06:40] LABS: MAGNESIUM 1.9 mg/dL (1.8-2.4); PHOSPHORUS 2.2 mg/dL (2.5-4.9)
--- NOTE | 2022-05-04 07:25 | NUR ---
GAVE THE REPORT TO MORNING NURSE OLAF FOR CONTINUOS OF CARE, PATIENT IS STABLE, SIGNING OUT.
[2022-05-04] MEDS: ALBUTEROL SULFATE/IPRATROPIU 3 ML SOL IH SCH ×2 (07:42→12:56)
[2022-05-04] MEDS: ENOXAPARIN 40 MG/0.4 ML SYR SUBQ SCH (09:57)
[2022-05-04] MEDS: FAMOTIDINE 20 MG/2 ML VIAL IV SCH (09:58)
[2022-05-04] MEDS: ALGINATE DRESSING MC SCH (13:00)
[2022-05-04] MEDS ORDERED: MAG SULF 2000 MG/WATER PREMIX 50 ML IV SCH (15:30)
== END 2022-05-04 19:00 | DRG 710 ==
LOC: MED 19:41 → MTU 22:07
PROVIDERS: ADMIT Internal Medicine; ATTEND Internal Medicine
PROC: 5A1955Z Respiratory Ventilation, Greater than 96 Consecutive Hours (ICD-10-PCS; principal; 2022-04-26)
PROC: 02HV33Z Insertion of Infusion Device into Superior Vena Cava, Percutaneous Approach (ICD-10-PCS; 2022-04-28)
PROC: B548ZZA Ultrasonography of Superior Vena Cava, Guidance (ICD-10-PCS; 2022-04-28)
PROC: 0JB70ZZ Excision of Back Subcutaneous Tissue and Fascia, Open Approach (ICD-10-PCS; 2022-04-29)
PROC: 0QB10ZZ Excision of Sacrum, Open Approach (ICD-10-PCS; 2022-04-29)
DX: A41.9 Sepsis, unspecified organism (principal); J96.21 Acute and chronic respiratory failure with hypoxia; J15.5 Pneumonia due to Escherichia coli; L89.154 Pressure ulcer of sacral region, stage 4; J15.6 Pneumonia due to other Gram-negative bacteria; G93.1 Anoxic brain damage, not elsewhere classified; N39.0 Urinary tract infection, site not specified; Z16.12 Extended spectrum beta lactamase (ESBL) resistance; Z99.11 Dependence on respirator [ventilator] status; E83.52 Hypercalcemia; D64.9 Anemia, unspecified; Z20.822 Contact with and (suspected) exposure to COVID-19; B96.20 Unspecified Escherichia coli [E. coli] as the cause of diseases classified elsewhere; J40 Bronchitis, not specified as acute or chronic; R13.10 Dysphagia, unspecified; D72.829 Elevated white blood cell count, unspecified; Z93.0 Tracheostomy status; Z87.820 Personal history of traumatic brain injury; Z91.51 Personal history of suicidal behavior; Z93.1 Gastrostomy status
CPT/HCPCS: 36415; 71045; 80048; 80053; 80202; 81001; 83605; 83735; 83880; 84100; 84484; 85025; 85610; 85730; 87070; 87081; 87086; 87205; 89220; 93005; 94002; 94003; 94640; 96365; 96366; 96368; 99291; J0278; J0692; J1650; J2001; J2185; J2270; J2405; J3010; J3370; J3475; J3490; J7060; Q0092